=== PATIENT | male | born 1955 | race Caucasian/White ===

== ENCOUNTER → 2016-06-11 | Day surgery (SDC) | payer OTHER, BC ==
[~2016-06-11] MED LIST: ALBUTEROL SO4 2.5/IPRATROPIUM 0.5 INH SOL 3 ML VIAL.NEB. NEB ONE; ONDANSETRON 4 MG/2 ML VIAL IVPUSH PRN
[2016-06-11 07:09] VITALS: BP 152/89; PULSE 78; TEMP 98.2; BMI 36.5
--- NOTE | 2016-06-11 07:37 | HP ---
Admitting History and Physical - Admission History of Present Illness: patient is a 60 y/o male with a past medical history of BOLA, depression, and gout. Patient presents for ECT his last ECT was 05/28/16. Patient reports ongoing cough and wheezing for the past week. patient denies any fever or chest pain. He reports awakening in the AM with a worsening cough. he denies any recent medication changes. History Source: Patient - Past Medical History Pulmonary: Yes: Sleep Apnea Psych: Yes: Depression. No: Addictions, Anxiety, Bipolar, Panic, Psychosis, Schizophrenia, Other - Smoking History Smoking history: Never smoked Have you smoked in the past 12 months: No - Alcohol/Substance Use Hx Alcohol Use: No History of Substance Use: reports: None - Social History ADL: Independent History of Recent Travel: No Home Medications - Allergies Allergies/Adverse Reactions: Allergies Allergy/AdvReac Type Severity Reaction Status Date / Time No Known Allergies Allergy Verified 04/20/16 15:15 - Home Medications Home Medications: Ambulatory Orders Duloxetine HCl [Cymbalta] 60 mg PO HS 01/03/13 Risperidone [Risperdal] 0.5 mg PO HS #0 02/13/15 Naproxen Sodium [Aleve] 220 mg PO DAILY PRN 02/27/16 Review of Systems - Review of Systems Constitutional: reports: No Symptoms Neck: reports: No Symptoms Cardiovascular: reports: No Symptoms Respiratory: reports: Cough, Wheezing Gastrointestinal: reports: No Symptoms Genitourinary: reports: No Symptoms Integumentary: reports: No Symptoms Neurological: reports: No Symptoms Hematology/Lymphatic: reports: No Symptoms Psychiatric: reports: No Symptoms Physical Examination Vital Signs: Vital Signs Temperature 98.2 F 06/11/16 06:52 Pulse Rate 78 06/11/16 06:52 Respiratory Rate 18 06/11/16 06:52 Blood Pressure 152/89 06/11/16 06:52 O2 Sat by Pulse Oximetry (%) 97 06/11/16 06:52 Constitutional: Yes: Well Nourished, No Distress, Calm Eyes: Yes: WNL, Conjunctiva Clear, EOM Intact HENT: Yes: WNL, Atraumatic, Normocephalic Neck: Yes: WNL, Supple, Trachea Midline Cardiovascular: Yes: WNL, Regular Rate and Rhythm, S1, S2 Respiratory: Yes: WNL, Regular, Other (wheezing noted to left apex and base, diminished to base). No: Accessory Muscle Use Gastrointestinal: Yes: WNL, Normal Bowel Sounds, Soft Renal/: No: CVA Tenderness - Left, CVA Tenderness - Right Musculoskeletal: Yes: WNL Extremities: Yes: WNL Edema: No Peripheral Pulses WNL: Yes Integumentary: Yes: WNL Neurological: Yes: WNL, Alert, Oriented ...Motor Strength: WNL Psychiatric: Yes: WNL, Alert, Oriented Labs: reviewed 01/06 Imaging - Results EKG: Image Reviewed, Other (nsr no ischemic changes) Assessment/Plan pt is a 60 y/o male that presents for ECT pt is noted to be wheezing on exam, combivent treatment ordered, pt is moderate risk for ECT, case discussed with Dr Douglass anesthesia, will cancel ECT today
== END | disposition home or self-care (01) ==
LOC: FECT 05:41
PROVIDERS: ATTEND Psychiatry & Neurology Psychiatry
PROC: GZB4ZZZ Other Electroconvulsive Therapy (ICD-10-PCS; principal; 2016-06-11)
DX: F33.2 Major depressive disorder, recurrent severe without psychotic features (principal); Z53.09 Procedure and treatment not carried out because of other contraindication
CPT/HCPCS: 90870

== ENCOUNTER → 2016-06-30 | Day surgery (SDC) | payer OTHER, BC ==
[2016-06-26 09:09] VITALS: BMI 36.5
[~2016-06-30] MED LIST changes: +ACETAMINOPHEN 325 MG TABLET (FP) PO PRN; -ALBUTEROL SO4 2.5/IPRATROPIUM 0.5 INH SOL 3 ML VIAL.NEB. NEB ONE
[2016-06-30 08:25] VITALS: BP 127/88; PULSE 86; TEMP 98.5
== END | disposition home or self-care (01) ==
LOC: FECT 05:39
PROVIDERS: ATTEND Psychiatry & Neurology Psychiatry
PROC: GZB4ZZZ Other Electroconvulsive Therapy (ICD-10-PCS; principal; 2016-06-30 07:00)
DX: F33.2 Major depressive disorder, recurrent severe without psychotic features (principal)
CPT/HCPCS: 90870; 94760

== ENCOUNTER 2016-07-17 05:36 | Day surgery (SDC) | payer OTHER, BC ==
[2016-07-17 06:34] VITALS: BMI 36.5
--- NOTE | 2016-07-17 06:59 | HP ---
Admitting History and Physical - Admission History of Present Illness: patient is a 60y/o male with a past medical history of OBLA, depression an gout. He presents for ECT, his last ECT was 06/30/16, patient reports feeling well. He was recently diagnosed with bronchitis and finished 7 days of antibiotics. He denies any chest pain, shortness of breath, or fever. Patient denies any recent medication changes or hospitalizations. History Source: Patient Limitations to Obtaining History: No Limitations - Past Medical History Pulmonary: Yes: Sleep Apnea Psych: Yes: Depression. No: Addictions, Anxiety, Bipolar, Panic, Psychosis, Schizophrenia, Other - Smoking History Smoking history: Never smoked Have you smoked in the past 12 months: No - Alcohol/Substance Use Hx Alcohol Use: No History of Substance Use: reports: None - Social History Usual Living Arrangement: Yes: Alone ADL: Independent History of Recent Travel: No Home Medications - Allergies Allergies/Adverse Reactions: Allergies Allergy/AdvReac Type Severity Reaction Status Date / Time No Known Allergies Allergy Verified 04/20/16 15:15 - Home Medications Home Medications: Ambulatory Orders Duloxetine HCl [Cymbalta] 60 mg PO HS 01/03/13 Risperidone [Risperdal] 0.5 mg PO HS #0 02/13/15 Naproxen Sodium [Aleve] 220 mg PO DAILY PRN 02/27/16 Family Disease History - Family Disease History Family History: Unremarkable Review of Systems - Review of Systems Constitutional: reports: No Symptoms Eyes: reports: No Symptoms HENT: reports: No Symptoms Neck: reports: No Symptoms Cardiovascular: reports: No Symptoms Respiratory: reports: No Symptoms Gastrointestinal: reports: No Symptoms Genitourinary: reports: No Symptoms Musculoskeletal: reports: No Symptoms Integumentary: reports: No Symptoms Neurological: reports: No Symptoms Endocrine: reports: No Symptoms Hematology/Lymphatic: reports: No Symptoms Psychiatric: reports: No Symptoms Physical Examination Vital Signs: Vital Signs Temperature 98 F 07/17/16 06:31 Pulse Rate 88 07/17/16 06:31 Respiratory Rate 18 07/17/16 06:31 Blood Pressure 120/68 07/17/16 06:31 O2 Sat by Pulse Oximetry (%) 96 07/17/16 06:31 Constitutional: Yes: Well Nourished, No Distress, Calm Eyes: Yes: WNL, Conjunctiva Clear, EOM Intact HENT: Yes: WNL, Atraumatic, Normocephalic Neck: Yes: WNL, Supple, Trachea Midline Cardiovascular: Yes: WNL, Regular Rate and Rhythm, S1, S2 Respiratory: Yes: WNL, Regular, CTA Bilaterally Gastrointestinal: Yes: WNL, Normal Bowel Sounds, Soft ...Rectal Exam: Yes: Deferred Renal/: Yes: WNL Breast(s): Yes: WNL Musculoskeletal: Yes: WNL Extremities: Yes: WNL Edema: No Peripheral Pulses WNL: Yes Peripheral Pulses: Left Radial: 4+, Right Radial: 4+, Left Doralis Pedis: 3+, Right Dorsalis Pedis: 3+, Left Femoral: 3+, Right Femoral: 3+ Integumentary: Yes: WNL Neurological: Yes: WNL, Alert, Oriented ...Motor Strength: WNL Psychiatric: Yes: WNL, Alert, Oriented Imaging - Results EKG: Image Reviewed, Other (nsr no ischemic changes) Assessment/Plan pt is a 60 y/o male that presents for ECT, he has received anaesthesia in the past and denies any adverse reaction to anesthesia. labs and ekg reviewed pt is low risk for ect informed consent, and risks/benefits to be obtained by Dr Muhammad
[2016-07-17 07:08] LABS: BASOPHIL 1.2 % (0-2.0); EOSINOPHIL 8.1 % (0-4.5); MCH 31.3 pg (25.7-33.7); MCHC 34.3 g/dl (32.0-35.9); MEAN CELL VOLUME 91.3 fl (80-96); NEUTROPHILS 53.1 % (42.8-82.8); PLATELET COUNT 211 K/MM3 (134-434); RDW 13.2 % (11.9-15.9); WHITE BLOOD COUNT 6.8 K/mm3 (4.0-10.0)
[2016-07-17 07:34] LABS: ALBUMIN 3.7 g/dl (3.4-5.0); ALK PHOS 72 U/L (45-117); ANION GAP 9 (8-16); BILIRUBIN,TOTAL 0.4 mg/dL (0.2-1.0); CALCIUM 9.3 mg/dL (8.5-10.1); CO2 28 mmol/L (21-32); GLUCOSE,RANDOM 109 mg/dL (74-106); SGOT/AST 18 U/L (15-37); SGPT/ALT 35 U/L (12-78); TOT PROT 6.9 g/dl (6.4-8.2)
[2016-07-17 09:05] VITALS: TEMP 98.4
[2016-07-17 09:18] VITALS: BP 122/78; PULSE 86
== END 2016-07-17 09:20 | disposition home or self-care (01) ==
LOC: FECT 05:36
PROVIDERS: ATTEND Psychiatry & Neurology Psychiatry
PROC: GZB4ZZZ Other Electroconvulsive Therapy (ICD-10-PCS; principal; 2016-07-17 07:45)
DX: F33.2 Major depressive disorder, recurrent severe without psychotic features (principal)
CPT/HCPCS: 36415; 80053; 85025; 90870; 94760

== ENCOUNTER 2016-08-13 05:39 | Day surgery (SDC) | payer OTHER, BC ==
[2016-07-30 09:31] VITALS: BMI 36.5
[2016-08-13 06:29] VITALS: TEMP 98.3
[2016-08-13 08:42] VITALS: BP 131/80; PULSE 86
== END 2016-08-13 08:40 | disposition home or self-care (01) ==
LOC: FECT 05:39
PROVIDERS: ATTEND Psychiatry & Neurology Psychiatry
PROC: GZB4ZZZ Other Electroconvulsive Therapy (ICD-10-PCS; principal; 2016-08-13 07:15)
DX: F33.2 Major depressive disorder, recurrent severe without psychotic features (principal)
CPT/HCPCS: 90870; 94760

== ENCOUNTER 2016-09-17 05:38 | Day surgery (SDC) | payer OTHER, BC ==
[2016-09-17 06:36] VITALS: BMI 34.8
--- NOTE | 2016-09-17 06:57 | HP ---
Admitting History and Physical - Admission History of Present Illness: patient is a 60 y/o male with a past medical history of halle, gout and depression. patient presents for ect his last ect was 08/27/16. He reports feeling well and denies any recent medication changes. patient denies any recent hospitalizations or illness. he reports an improvement in depressive symptoms since starting ECT. patient denies any suicidal or homicidal ideation , visual or auditory hallucinations. History Source: Patient Limitations to Obtaining History: No Limitations - Past Medical History Pulmonary: Yes: Sleep Apnea Psych: Yes: Depression. No: Addictions, Anxiety, Bipolar, Panic, Psychosis, Schizophrenia, Other - Smoking History Smoking history: Never smoked Have you smoked in the past 12 months: No - Alcohol/Substance Use Hx Alcohol Use: No History of Substance Use: reports: None - Social History Usual Living Arrangement: Yes: With Significant Other ADL: Independent History of Recent Travel: No Home Medications - Allergies Allergies/Adverse Reactions: Allergies Allergy/AdvReac Type Severity Reaction Status Date / Time No Known Allergies Allergy Verified 08/25/16 14:56 - Home Medications Home Medications: Ambulatory Orders Duloxetine HCl [Cymbalta] 60 mg PO HS 01/03/13 Risperidone [Risperdal] 0.5 mg PO HS #0 02/13/15 Naproxen Sodium [Aleve] 220 mg PO DAILY PRN 02/27/16 Family Disease History - Family Disease History Family History: Unremarkable Review of Systems - Review of Systems Constitutional: reports: No Symptoms Eyes: reports: No Symptoms HENT: reports: No Symptoms Neck: reports: No Symptoms Cardiovascular: reports: No Symptoms Respiratory: reports: No Symptoms Gastrointestinal: reports: No Symptoms Genitourinary: reports: No Symptoms Breasts: reports: No Symptoms Reported Musculoskeletal: reports: No Symptoms Integumentary: reports: No Symptoms Neurological: reports: No Symptoms Endocrine: reports: No Symptoms Hematology/Lymphatic: reports: No Symptoms Psychiatric: reports: No Symptoms Physical Examination Vital Signs: Vital Signs Temperature 98.8 F 09/17/16 06:30 Pulse Rate 88 09/17/16 06:30 Respiratory Rate 18 09/17/16 06:30 Blood Pressure 138/66 09/17/16 06:30 O2 Sat by Pulse Oximetry (%) 96 09/17/16 06:30 Constitutional: Yes: Well Nourished, No Distress, Calm, Obese Eyes: Yes: WNL, Conjunctiva Clear, EOM Intact HENT: Yes: WNL, Atraumatic, Normocephalic Neck: Yes: WNL, Supple, Trachea Midline Cardiovascular: Yes: WNL, Regular Rate and Rhythm, S1 Respiratory: Yes: WNL, Regular, CTA Bilaterally Gastrointestinal: Yes: WNL, Normal Bowel Sounds, Soft ...Rectal Exam: Yes: Deferred Renal/: Yes: WNL Breast(s): Yes: WNL Musculoskeletal: Yes: WNL Extremities: Yes: WNL Edema: No Peripheral Pulses WNL: Yes Peripheral Pulses: Left Radial: 4+, Right Radial: 4+, Left Doralis Pedis: 3+, Right Dorsalis Pedis: 3+, Left Femoral: 3+, Right Femoral: 3+ Integumentary: Yes: WNL Neurological: Yes: WNL, Alert, Oriented ...Motor Strength: WNL Psychiatric: Yes: WNL, Alert, Oriented Labs: reviewed 07/10 Imaging - Results EKG: Image Reviewed, Other (nsr no ischemic changes normal axis deviation) Assessment/Plan pt is a 60 y/o male that presents for ect, he has received ect in the past and denies any adverse reaction to anesthesia. labs and ekg reviewed pt is low risk for procedure informed consent, risks and benefits to be obtained by Dr Muhammad
[2016-09-17] MEDS ORDERED: KETAMINE HCL 500 MG/10 ML VIAL ONE (07:25)
[2016-09-17 08:59] VITALS: TEMP 98.1
[2016-09-17 09:00] VITALS: BP 137/70; PULSE 77
--- NOTE | 2016-09-17 12:56 | EKG ---
Test Reason : Blood Pressure : / mmHG Vent. Rate : 092 BPM Atrial Rate : 092 BPM P-R Int : 128 ms QRS Dur : 086 ms QT Int : 380 ms P-R-T Axes : 049 008 031 degrees QTc Int : 469 ms NORMAL SINUS RHYTHM NORMAL ECG NO PREVIOUS ECGS AVAILABLE Confirmed by BLANCA AGUIRRE MD ([id number] on 09/17/2016 12:56:29 PM Referred By: Jorge Muhammad Confirmed By:BLANCA AGUIRRE MD
== END 2016-09-17 09:00 | disposition home or self-care (01) ==
LOC: FECT 05:38
PROVIDERS: ATTEND Psychiatry & Neurology Psychiatry
PROC: GZB4ZZZ Other Electroconvulsive Therapy (ICD-10-PCS; principal; 2016-09-17 07:30)
DX: F33.2 Major depressive disorder, recurrent severe without psychotic features (principal)
CPT/HCPCS: 90870; 93005; 94760

== ENCOUNTER 2016-10-08 05:23 | Day surgery (SDC) | payer OTHER, BC ==
[2016-10-08 06:13] VITALS: TEMP 98; BMI 35.5
[2016-10-08] MEDS ORDERED: KETAMINE HCL 500 MG/10 ML VIAL ONE (06:49)
[2016-10-08 08:14] VITALS: BP 131/77; PULSE 86
[2016-10-08] MEDS ORDERED: ONDANSETRON 4 MG/2 ML VIAL IVPUSH PRN (09:45)
[2016-10-08] MEDS ORDERED: ACETAMINOPHEN 325 MG TABLET (FP) PO PRN (09:45)
== END 2016-10-08 08:10 | disposition home or self-care (01) ==
LOC: FECT 05:23
PROVIDERS: ATTEND Psychiatry & Neurology Psychiatry
PROC: GZB4ZZZ Other Electroconvulsive Therapy (ICD-10-PCS; principal; 2016-10-08 07:15)
DX: F33.2 Major depressive disorder, recurrent severe without psychotic features (principal)
CPT/HCPCS: 90870; 94760

== ENCOUNTER 2016-10-29 05:40 | Day surgery (SDC) | payer OTHER, BC ==
[2016-10-29 06:28] VITALS: BMI 35.5
--- NOTE | 2016-10-29 07:26 | HP ---
Admitting History and Physical - Admission History of Present Illness: patient is a 61 y/o male with a past medical history of depression, BOLA, and gout. Patient presents for ECT, his last ECT was 10/08/16. Patient reports an improvement of depression since starting ECT. He does report demolishing a cement deck yesterday. Patient report ambulating this AM, he reports feeling dizzy. Patient denies any syncopal episode, chest pain or shortness of breath. patient denies any medication changes, illnessess or hospitalization. History Source: Patient Limitations to Obtaining History: No Limitations - Past Medical History Pulmonary: Yes: Sleep Apnea Psych: Yes: Depression. No: Addictions, Anxiety, Bipolar, Panic, Psychosis, Schizophrenia, Other - Smoking History Smoking history: Never smoked Have you smoked in the past 12 months: No - Alcohol/Substance Use Hx Alcohol Use: No History of Substance Use: reports: None - Social History ADL: Independent History of Recent Travel: No Home Medications - Allergies Allergies/Adverse Reactions: Allergies Allergy/AdvReac Type Severity Reaction Status Date / Time No Known Allergies Allergy Verified 08/25/16 14:56 - Home Medications Home Medications: Ambulatory Orders Duloxetine HCl [Cymbalta] 60 mg PO HS 01/03/13 Risperidone [Risperdal] 0.5 mg PO HS #0 02/13/15 Meloxicam [Mobic] 15 mg PO HS 10/08/16 Family Disease History - Family Disease History Family History: Unremarkable Review of Systems - Review of Systems Constitutional: reports: No Symptoms Eyes: reports: No Symptoms HENT: reports: No Symptoms Neck: reports: No Symptoms Cardiovascular: reports: No Symptoms Respiratory: reports: No Symptoms Gastrointestinal: reports: No Symptoms Genitourinary: reports: No Symptoms Musculoskeletal: reports: No Symptoms Integumentary: reports: No Symptoms Neurological: reports: No Symptoms Endocrine: reports: No Symptoms Hematology/Lymphatic: reports: No Symptoms Psychiatric: reports: No Symptoms Physical Examination Vital Signs: Vital Signs Temperature 98.4 F 10/29/16 06:23 Pulse Rate 75 10/29/16 06:23 Respiratory Rate 15 10/29/16 06:23 Blood Pressure 143/90 10/29/16 06:23 O2 Sat by Pulse Oximetry (%) 97 10/29/16 06:23 Constitutional: Yes: Well Nourished, No Distress, Calm, Obese Eyes: Yes: WNL, Conjunctiva Clear, EOM Intact HENT: Yes: WNL, Atraumatic, Normocephalic Neck: Yes: WNL, Supple, Trachea Midline Cardiovascular: Yes: WNL, Regular Rate and Rhythm, S1, S2 Respiratory: Yes: WNL, Regular, CTA Bilaterally Gastrointestinal: Yes: WNL, Normal Bowel Sounds, Soft ...Rectal Exam: Yes: Deferred Renal/: Yes: WNL Musculoskeletal: Yes: WNL Extremities: Yes: WNL Edema: No Peripheral Pulses WNL: Yes Peripheral Pulses: Left Radial: 4+, Right Radial: 4+, Left Doralis Pedis: 3+, Right Dorsalis Pedis: 3+, Left Femoral: 3+, Right Femoral: 3+ Integumentary: Yes: WNL Neurological: Yes: WNL, Alert, Oriented ...Motor Strength: WNL Psychiatric: Yes: WNL, Alert, Oriented Labs: labs reviewed 07/10 Imaging - Results EKG: Image Reviewed, Other (nsr no ischemeic changes) Assessment/Plan pt is a 61 y/o male that presents for ECT, his last ECT was 10/08, he denies any past reaction to anesthesia labs and ekg reviewed pt is low risk for procedure informed consent, risks/benefits to be obtained by Dr Muhammad
[2016-10-29] MEDS ORDERED: KETAMINE HCL 500 MG/10 ML VIAL ONE (08:23)
[2016-10-29] MEDS ORDERED: ONDANSETRON 4 MG/2 ML VIAL IVPUSH PRN (08:46)
[2016-10-29] MEDS ORDERED: LACTATED RINGERS SOLUTION 1,000 ML IV SCH (09:00)
[2016-10-29 10:03] VITALS: TEMP 97.8
[2016-10-29 10:11] VITALS: BP 139/79; PULSE 88
== END 2016-10-29 10:05 | disposition home or self-care (01) ==
LOC: FECT 05:40
PROVIDERS: ATTEND Psychiatry & Neurology Psychiatry
PROC: GZB4ZZZ Other Electroconvulsive Therapy (ICD-10-PCS; principal; 2016-10-29 08:00)
DX: F33.2 Major depressive disorder, recurrent severe without psychotic features (principal)
CPT/HCPCS: 90870; 94760

== ENCOUNTER 2016-11-19 05:38 | Day surgery (SDC) | payer OTHER, BC ==
[2016-11-11 16:50] VITALS: BMI 35.5
[2016-11-19] MEDS ORDERED: KETAMINE HCL 500 MG/10 ML VIAL ONE (07:05)
[2016-11-19 08:25] VITALS: PULSE 100; TEMP 97.9
[2016-11-19 08:26] VITALS: BP 132/83
== END 2016-11-19 08:25 | disposition home or self-care (01) ==
LOC: FECT 05:38
PROVIDERS: ATTEND Psychiatry & Neurology Psychiatry
PROC: GZB4ZZZ Other Electroconvulsive Therapy (ICD-10-PCS; principal; 2016-11-19 07:15)
DX: F33.2 Major depressive disorder, recurrent severe without psychotic features (principal)
CPT/HCPCS: 90870; 94760

== ENCOUNTER 2016-12-18 05:38 | Day surgery (SDC) | payer OTHER, BC ==
[2016-12-17 13:27] VITALS: BMI 35.5
[2016-12-18 07:01] VITALS: TEMP 98
--- NOTE | 2016-12-18 07:01 | HP ---
Admitting History and Physical - Admission History of Present Illness: patient is a 61 y/o male with a past medical history of depression, halle, and gout. Patient presents for ect, his last ect was 11/19/16. He reports feeling well, he denies any recent illnesses or hospitalizations. Patient denies any medication changes and reports compliance with prescribed medications. He reports an improvement in depressive symptoms since starting ect. He denies any suicidal or homicidal ideation, visual or auditory hallucinations. History Source: Patient Limitations to Obtaining History: No Limitations - Past Medical History Pulmonary: Yes: Sleep Apnea Psych: Yes: Depression. No: Addictions, Anxiety, Bipolar, Panic, Psychosis, Schizophrenia, Other - Smoking History Smoking history: Never smoked Have you smoked in the past 12 months: No - Alcohol/Substance Use Hx Alcohol Use: No History of Substance Use: reports: None - Social History Usual Living Arrangement: Yes: With Spouse ADL: Independent History of Recent Travel: No Home Medications - Allergies Allergies/Adverse Reactions: Allergies Allergy/AdvReac Type Severity Reaction Status Date / Time No Known Allergies Allergy Verified 11/11/16 16:44 - Home Medications Home Medications: Ambulatory Orders Duloxetine HCl [Cymbalta] 60 mg PO HS 01/03/13 Risperidone [Risperdal] 0.5 mg PO HS #0 02/13/15 Naproxen Sodium [Aleve] 440 mg PO DAILY PRN 12/18/16 Family Disease History - Family Disease History Family History: Unremarkable Review of Systems - Review of Systems Constitutional: reports: No Symptoms Eyes: reports: No Symptoms HENT: reports: No Symptoms Neck: reports: No Symptoms Cardiovascular: reports: No Symptoms Respiratory: reports: No Symptoms Gastrointestinal: reports: No Symptoms Genitourinary: reports: No Symptoms Musculoskeletal: reports: No Symptoms Integumentary: reports: No Symptoms Neurological: reports: No Symptoms Endocrine: reports: No Symptoms Hematology/Lymphatic: reports: No Symptoms Psychiatric: reports: No Symptoms Physical Examination Constitutional: Yes: Well Nourished, No Distress, Calm, Obese Eyes: Yes: WNL, Conjunctiva Clear, EOM Intact HENT: Yes: WNL, Atraumatic, Normocephalic Neck: Yes: WNL, Supple, Trachea Midline Cardiovascular: Yes: WNL, Regular Rate and Rhythm, S1, S2 Respiratory: Yes: WNL, Regular, CTA Bilaterally Gastrointestinal: Yes: WNL, Normal Bowel Sounds, Soft ...Rectal Exam: Yes: Deferred Renal/: Yes: WNL Musculoskeletal: Yes: WNL Extremities: Yes: WNL Edema: No Peripheral Pulses WNL: Yes Peripheral Pulses: Left Radial: 4+, Right Radial: 4+, Left Doralis Pedis: 3+, Right Dorsalis Pedis: 3+, Left Femoral: 3+, Right Femoral: 3+ Integumentary: Yes: WNL Neurological: Yes: WNL, Alert, Oriented ...Motor Strength: WNL Psychiatric: Yes: WNL, Alert, Oriented Labs: labs reviewed 07/10 Imaging - Results EKG: Other (nsr no ischemic changes) Assessment/Plan pt is a 61 y/o male that presents for ect, labs and ekg reviewed pt is medically optimized for procedure
[2016-12-18] MEDS ORDERED: KETAMINE HCL 500 MG/10 ML VIAL ONE (07:19)
[2016-12-18 09:26] LABS: ALBUMIN 3.6 g/dl (3.5-5.0); ALK PHOS 52 U/L (32-92); ANION GAP 6 (8-16); BILIRUBIN,TOTAL 0.8 mg/dl (0.2-1.0); CALCIUM 8.9 mg/dl (8.4-10.2); CO2 27 mmol/L (22-28); CREATININE 0.9 mg/dl (0.6-1.3); GLUCOSE,RANDOM 121 mg/dl (74-106); SGOT/AST 26 U/L (10-42); SGPT/ALT 30 U/L (10-40); TOT PROT 6.3 g/dl (6.4-8.3)
[2016-12-18 09:27] LABS: BASOPHIL 3.1 % (0-2.0); EOSINOPHIL 8.6 % (0-4.5); MCH 31.9 pg (25.7-33.7); MCHC 35.4 g/dl (32.0-35.9); MEAN PLT VOLUME 8.7 fl (7.5-11.1); NEUTROPHILS 64.3 % (42.8-82.8); PLATELET COUNT 215 K/MM3 (134-434); RDW 12.2 % (11.9-15.9); WHITE BLOOD COUNT 6.2 K/mm3 (4.0-10.8)
[2016-12-18 09:29] VITALS: BP 139/89; PULSE 88
== END 2016-12-18 09:00 | disposition home or self-care (01) ==
LOC: FECT 05:38
PROVIDERS: ATTEND Psychiatry & Neurology Psychiatry
PROC: GZB4ZZZ Other Electroconvulsive Therapy (ICD-10-PCS; principal; 2016-12-18 07:00)
DX: F33.2 Major depressive disorder, recurrent severe without psychotic features (principal)
CPT/HCPCS: 36415; 80053; 85025; 90870; 94760

== ENCOUNTER 2017-01-07 05:38 | Day surgery (SDC) | payer OTHER, BC ==
[2017-01-07 06:05] VITALS: BMI 35.5
[2017-01-07 07:40] VITALS: TEMP 98
[2017-01-07 08:06] VITALS: BP 137/87; PULSE 98
[2017-01-07] MEDS ORDERED: LACTATED RINGERS SOLUTION 1,000 ML IV SCH (09:45)
== END 2017-01-07 08:10 | disposition home or self-care (01) ==
LOC: FECT 05:38
PROVIDERS: ATTEND Psychiatry & Neurology Psychiatry
PROC: GZB4ZZZ Other Electroconvulsive Therapy (ICD-10-PCS; principal; 2017-01-07 07:30)
DX: F33.2 Major depressive disorder, recurrent severe without psychotic features (principal)
CPT/HCPCS: 90870; 94760

== ENCOUNTER 2017-02-02 05:32 | Day surgery (SDC) | payer OTHER ==
--- NOTE | 2017-02-02 06:59 | HP ---
Admitting History and Physical - Admission History of Present Illness: patient is a 61 y/o male with a past medical history of halle, depression, gout. Patient presents for ect, his last ect was 12/28/16. He reports feeling well. Patient denies any changes in medication. He denies any recent illnesses or hospitalizations. Patient reports an improvement in symptoms since starting ect. patient denies any suicidal or homicidal ideation, visual or auditory hallucinations. History Source: Patient Limitations to Obtaining History: No Limitations - Past Medical History Pulmonary: Yes: Sleep Apnea Psych: Yes: Depression. No: Addictions, Anxiety, Bipolar, Panic, Psychosis, Schizophrenia, Other - Smoking History Smoking history: Never smoked Have you smoked in the past 12 months: No - Alcohol/Substance Use Hx Alcohol Use: No History of Substance Use: reports: None - Social History ADL: Independent History of Recent Travel: No Home Medications - Allergies Allergies/Adverse Reactions: Allergies Allergy/AdvReac Type Severity Reaction Status Date / Time No Known Allergies Allergy Verified 11/11/16 16:44 - Home Medications Home Medications: Ambulatory Orders Duloxetine HCl [Cymbalta] 60 mg PO HS 01/03/13 Risperidone [Risperdal] 0.5 mg PO HS #0 02/13/15 Naproxen Sodium [Aleve] 440 mg PO DAILY PRN 12/18/16 Family Disease History - Family Disease History Family History: Unremarkable Review of Systems - Review of Systems Constitutional: reports: No Symptoms Eyes: reports: No Symptoms HENT: reports: No Symptoms Neck: reports: No Symptoms Cardiovascular: reports: No Symptoms Respiratory: reports: No Symptoms Gastrointestinal: reports: No Symptoms Genitourinary: reports: No Symptoms Musculoskeletal: reports: No Symptoms Integumentary: reports: No Symptoms Neurological: reports: No Symptoms Endocrine: reports: No Symptoms Hematology/Lymphatic: reports: No Symptoms Psychiatric: reports: No Symptoms Physical Examination Vital Signs: Vital Signs Temperature 98.0 F 02/02/17 06:13 Pulse Rate 85 02/02/17 06:13 Respiratory Rate 18 02/02/17 06:13 Blood Pressure 145/95 02/02/17 06:13 O2 Sat by Pulse Oximetry (%) 99 02/02/17 06:13 Constitutional: Yes: Well Nourished, No Distress, Calm, Obese Eyes: Yes: WNL, Conjunctiva Clear, EOM Intact HENT: Yes: WNL, Atraumatic, Normocephalic Neck: Yes: WNL, Supple, Trachea Midline Cardiovascular: Yes: WNL, Regular Rate and Rhythm, S1, S2 Respiratory: Yes: WNL, Regular, CTA Bilaterally Gastrointestinal: Yes: WNL, Normal Bowel Sounds, Soft ...Rectal Exam: Yes: Deferred Renal/: Yes: WNL Breast(s): Yes: WNL Musculoskeletal: Yes: WNL Extremities: Yes: WNL Edema: No Peripheral Pulses WNL: Yes Peripheral Pulses: Left Radial: 4+, Right Radial: 4+, Left Doralis Pedis: 3+, Right Dorsalis Pedis: 3+, Left Femoral: 3+, Right Femoral: 3+ Integumentary: Yes: WNL Neurological: Yes: WNL, Alert, Oriented ...Motor Strength: WNL Psychiatric: Yes: WNL, Alert, Oriented Labs: reviewed 12/07 Imaging - Results EKG: Image Reviewed, Other (nsr) Assessment/Plan pt is a 61 y/o male that presents for ect, labs and ekg reviewed pt is medically optimized for procedure informed consent, risks/benefits to be obtained by Dr Muhammad
[2017-02-02] MEDS ORDERED: KETAMINE HCL 500 MG/10 ML VIAL ONE (07:32)
[2017-02-02 08:17] VITALS: TEMP 98.1
[2017-02-02 08:57] VITALS: BP 130/86; PULSE 88
== END 2017-02-02 09:01 | disposition home or self-care (01) ==
LOC: FECT 05:32
PROVIDERS: ATTEND Psychiatry & Neurology Psychiatry
PROC: GZB4ZZZ Other Electroconvulsive Therapy (ICD-10-PCS; principal; 2017-02-02 08:15)
DX: F33.2 Major depressive disorder, recurrent severe without psychotic features (principal)
CPT/HCPCS: 90870; 94760

== ENCOUNTER 2017-03-03 05:41 | Day surgery (SDC) | payer OTHER, BC ==
[2017-03-03 06:10] VITALS: TEMP 98.2; BMI 38.2
[2017-03-03] MEDS ORDERED: KETAMINE HCL 500 MG/10 ML VIAL ONE (06:52)
--- NOTE | 2017-03-03 08:27 | HP ---
Admitting History and Physical - Admission History of Present Illness: Patient is a 61 y/o male with a past medical history of depression, BOLA, and gout. Patient presents for ect, his last ect was 02/02/17. Patient reports feeling well, denies any suicidal or homicidal ideation, visual or auditory hallucination. He denies any recent illnesses or hospitalizations. Patient denies any changes in medications and reports compliance with prescribed medications. History Source: Patient Limitations to Obtaining History: No Limitations - Past Medical History Pulmonary: Yes: Sleep Apnea Psych: Yes: Depression. No: Addictions, Anxiety, Bipolar, Panic, Psychosis, Schizophrenia, Other - Smoking History Smoking history: Never smoked Have you smoked in the past 12 months: No - Alcohol/Substance Use Hx Alcohol Use: No History of Substance Use: reports: None - Social History ADL: Independent History of Recent Travel: No Home Medications - Allergies Allergies/Adverse Reactions: Allergies Allergy/AdvReac Type Severity Reaction Status Date / Time No Known Allergies Allergy Verified 11/11/16 16:44 - Home Medications Home Medications: Ambulatory Orders Duloxetine HCl [Cymbalta] 60 mg PO HS 01/03/13 Risperidone [Risperdal] 0.5 mg PO HS #0 02/13/15 Naproxen Sodium [Aleve] 440 mg PO DAILY PRN 12/18/16 Family Disease History - Family Disease History Family History: Denies Review of Systems - Review of Systems Constitutional: reports: No Symptoms Eyes: reports: No Symptoms HENT: reports: No Symptoms Neck: reports: No Symptoms Cardiovascular: reports: No Symptoms Respiratory: reports: No Symptoms Gastrointestinal: reports: No Symptoms Genitourinary: reports: No Symptoms Musculoskeletal: reports: No Symptoms Integumentary: reports: No Symptoms Neurological: reports: No Symptoms Endocrine: reports: No Symptoms Hematology/Lymphatic: reports: No Symptoms Psychiatric: reports: No Symptoms Physical Examination Vital Signs: Vital Signs Temperature 98.2 F 03/03/17 08:10 Pulse Rate 74 03/03/17 08:10 Respiratory Rate 18 03/03/17 08:10 Blood Pressure 121/78 03/03/17 08:10 O2 Sat by Pulse Oximetry (%) 95 03/03/17 08:10 Constitutional: Yes: Well Nourished, No Distress, Calm, Obese Eyes: Yes: WNL, Conjunctiva Clear, EOM Intact HENT: Yes: WNL, Atraumatic, Normocephalic Neck: Yes: WNL, Supple, Trachea Midline Cardiovascular: Yes: WNL, Regular Rate and Rhythm, S1, S2 Respiratory: Yes: WNL, Regular, CTA Bilaterally Gastrointestinal: Yes: WNL, Normal Bowel Sounds, Soft ...Rectal Exam: Yes: Deferred Renal/: Yes: WNL Musculoskeletal: Yes: WNL Extremities: Yes: WNL Edema: No Edema: LUE: 4+, RUE: 4+, LLE: 3+, RLE: 3+ Peripheral Pulses WNL: Yes Peripheral Pulses: Left Radial: 4+, Right Radial: 4+, Left Doralis Pedis: 3+, Right Dorsalis Pedis: 3+, Left Femoral: 3+, Right Femoral: 3+ Integumentary: Yes: WNL Neurological: Yes: WNL, Alert, Oriented ...Motor Strength: WNL Psychiatric: Yes: WNL, Alert, Oriented Labs: reviewed 12/07 Imaging - Results EKG: Image Reviewed, Other (nsr no ischemic changes) Assessment/Plan patient is a 61 y/o male that presents for ect, labs and ekg reviewed pt is medically optimized for procedure informed consent, risks/benefits to be obtained by Dr Muhammad
[2017-03-03 08:30] VITALS: BP 140/88; PULSE 88
== END 2017-03-03 08:15 | disposition home or self-care (01) ==
LOC: FECT 05:41
PROVIDERS: ATTEND Psychiatry & Neurology Psychiatry
PROC: GZB4ZZZ Other Electroconvulsive Therapy (ICD-10-PCS; principal; 2017-03-03 08:00)
DX: F33.2 Major depressive disorder, recurrent severe without psychotic features (principal)
CPT/HCPCS: 90870; 94760

== ENCOUNTER 2017-04-08 05:42 | Day surgery (SDC) | payer OTHER, BC ==
[2017-04-07 15:54] VITALS: BMI 38.2
[2017-04-08 06:57] VITALS: TEMP 98
--- NOTE | 2017-04-08 07:15 | HP ---
Admitting History and Physical - Admission History of Present Illness: patient is a 61 y/o male with a past medical history of depression, halle, and gout. Patient presents for ect, his last ect 03/03/17. patient reports feeling well, he denies any changes in medication or recent illnesses. patient denies any suicidal or homicidal ideation, visual or auditory hallucinations. History Source: Patient Limitations to Obtaining History: No Limitations - Past Medical History Pulmonary: Yes: Sleep Apnea Psych: Yes: Depression. No: Addictions, Anxiety, Bipolar, Panic, Psychosis, Schizophrenia, Other - Smoking History Smoking history: Never smoked Have you smoked in the past 12 months: No - Alcohol/Substance Use Hx Alcohol Use: No History of Substance Use: reports: None - Social History Usual Living Arrangement: Yes: With Spouse ADL: Independent History of Recent Travel: No Home Medications - Allergies Allergies/Adverse Reactions: Allergies Allergy/AdvReac Type Severity Reaction Status Date / Time No Known Allergies Allergy Verified 04/07/17 14:08 - Home Medications Home Medications: Ambulatory Orders Duloxetine HCl [Cymbalta] 60 mg PO HS 01/03/13 Risperidone [Risperdal] 0.5 mg PO HS #0 02/13/15 Naproxen Sodium [Aleve] 440 mg PO DAILY PRN 12/18/16 Family Disease History - Family Disease History Family History: Denies Review of Systems - Review of Systems Constitutional: reports: No Symptoms Eyes: reports: No Symptoms HENT: reports: No Symptoms Neck: reports: No Symptoms Cardiovascular: reports: No Symptoms Respiratory: reports: No Symptoms Gastrointestinal: reports: No Symptoms Genitourinary: reports: No Symptoms Musculoskeletal: reports: No Symptoms Integumentary: reports: No Symptoms Neurological: reports: No Symptoms Endocrine: reports: No Symptoms Hematology/Lymphatic: reports: No Symptoms Psychiatric: reports: No Symptoms Physical Examination Vital Signs: Vital Signs Temperature 98.0 F 04/08/17 06:34 Pulse Rate 86 04/08/17 06:34 Respiratory Rate 18 04/08/17 06:34 Blood Pressure 139/84 04/08/17 06:34 O2 Sat by Pulse Oximetry (%) 96 04/08/17 06:34 Constitutional: Yes: Well Nourished, No Distress, Calm Eyes: Yes: WNL, Conjunctiva Clear, EOM Intact HENT: Yes: WNL, Atraumatic, Normocephalic Neck: Yes: WNL, Supple, Trachea Midline Cardiovascular: Yes: WNL, Regular Rate and Rhythm, S1, S2 Respiratory: Yes: WNL, Regular, CTA Bilaterally Gastrointestinal: Yes: WNL, Normal Bowel Sounds, Soft ...Rectal Exam: Yes: Deferred Renal/: Yes: WNL Breast(s): Yes: WNL Musculoskeletal: Yes: WNL Extremities: Yes: WNL Edema: No Peripheral Pulses WNL: Yes Peripheral Pulses: Left Radial: 4+, Right Radial: 4+, Left Doralis Pedis: 3+, Right Dorsalis Pedis: 3+, Left Femoral: 3+, Right Femoral: 3+ Integumentary: Yes: WNL Neurological: Yes: WNL, Alert, Oriented ...Motor Strength: WNL Psychiatric: Yes: WNL, Alert, Oriented Labs: reviewed 12/07 Imaging - Results EKG: Image Reviewed, Other (nsr) Assessment/Plan patient is a 61 y/o male that presents for ect, labs and ekg reviewed patient is medically optimized for procedure
[2017-04-08] MEDS ORDERED: KETAMINE HCL 500 MG/10 ML VIAL ONE (07:57)
[2017-04-08] MEDS ORDERED: PROMETHAZINE HCL 25 MG/1 ML VIAL IVPUSH PRN (08:31)
[2017-04-08] MEDS ORDERED: ONDANSETRON 4 MG/2 ML VIAL IVPUSH PRN (08:31)
[2017-04-08] MEDS ORDERED: LACTATED RINGERS SOLUTION 1,000 ML IV SCH (08:45)
--- NOTE | 2017-04-08 11:05 | EKG ---
Test Reason : Blood Pressure : / mmHG Vent. Rate : 085 BPM Atrial Rate : 085 BPM P-R Int : 132 ms QRS Dur : 084 ms QT Int : 372 ms P-R-T Axes : 069 059 065 degrees QTc Int : 442 ms NORMAL SINUS RHYTHM NORMAL ECG WHEN COMPARED WITH ECG OF 08-APR-2017 06:48, NO SIGNIFICANT CHANGE WAS FOUND Confirmed by BRIGIDO MITCHELL MD ([id number]) on 04/08/2017 11:05:01 AM Referred By: Jorge Muhammad Confirmed By:BRIGIDO MITCHELL MD
[2017-04-09 12:58] VITALS: BP 138/88; PULSE 79
== END 2017-04-08 09:30 | disposition home or self-care (01) ==
LOC: FECT 05:42
PROVIDERS: ATTEND Psychiatry & Neurology Psychiatry
PROC: GZB4ZZZ Other Electroconvulsive Therapy (ICD-10-PCS; principal; 2017-04-08 07:30)
DX: F33.2 Major depressive disorder, recurrent severe without psychotic features (principal)
CPT/HCPCS: 90870; 93005; 94760

== ENCOUNTER 2017-05-06 05:41 | Day surgery (SDC) | payer OTHER, BC ==
[2017-05-06 06:01] VITALS: BMI 38.2
[2017-05-06] MEDS ORDERED: KETAMINE HCL 500 MG/10 ML VIAL ONE (07:05)
[2017-05-06 08:49] VITALS: BP 130/74; PULSE 75; TEMP 98.1
== END 2017-05-06 08:35 | disposition home or self-care (01) ==
LOC: FECT 05:41
PROVIDERS: ATTEND Psychiatry & Neurology Psychiatry
PROC: GZB4ZZZ Other Electroconvulsive Therapy (ICD-10-PCS; principal; 2017-05-06 07:00)
DX: F33.2 Major depressive disorder, recurrent severe without psychotic features (principal)
CPT/HCPCS: 90870; 94760

== ENCOUNTER 2017-06-03 05:37 | Day surgery (SDC) | payer OTHER ==
--- NOTE | 2017-06-03 07:11 | HP ---
Admitting History and Physical - Admission History of Present Illness: patient is a 61y/o obese male with a past medical history of depression, BOLA and gout. Patient presents for ect, his last ect was 05/06/17. Patient reports a significant improvement in depressive symptoms since starting ect. He denies any changes in medications. patient denies any recent illnesses or hospitalizations. He denies any suicidal or homicidal ideation or visual or auditory hallucinations. History Source: Patient Limitations to Obtaining History: No Limitations - Past Medical History Pulmonary: Yes: Sleep Apnea Psych: Yes: Depression. No: Addictions, Anxiety, Bipolar, Panic, Psychosis, Schizophrenia, Other - Smoking History Smoking history: Never smoked Have you smoked in the past 12 months: No - Alcohol/Substance Use Hx Alcohol Use: No History of Substance Use: reports: None - Social History Usual Living Arrangement: Yes: With Spouse ADL: Independent History of Recent Travel: No Home Medications - Allergies Allergies/Adverse Reactions: Allergies Allergy/AdvReac Type Severity Reaction Status Date / Time No Known Allergies Allergy Verified 05/04/17 18:32 - Home Medications Home Medications: Ambulatory Orders Duloxetine HCl [Cymbalta] 60 mg PO HS 01/03/13 Risperidone [Risperdal] 0.5 mg PO HS #0 02/13/15 Naproxen Sodium [Aleve] 440 mg PO DAILY PRN 12/18/16 Family Disease History - Family Disease History Family History: Denies Review of Systems - Review of Systems Constitutional: reports: No Symptoms Eyes: reports: No Symptoms HENT: reports: No Symptoms Neck: reports: No Symptoms Cardiovascular: reports: No Symptoms Respiratory: reports: No Symptoms Gastrointestinal: reports: No Symptoms Genitourinary: reports: No Symptoms Musculoskeletal: reports: No Symptoms Integumentary: reports: No Symptoms Neurological: reports: No Symptoms Endocrine: reports: No Symptoms Hematology/Lymphatic: reports: No Symptoms Psychiatric: reports: No Symptoms Physical Examination Constitutional: Yes: Well Nourished, No Distress, Calm Eyes: Yes: WNL, Conjunctiva Clear, EOM Intact HENT: Yes: WNL, Atraumatic, Normocephalic Neck: Yes: WNL, Supple, Trachea Midline Cardiovascular: Yes: WNL, Regular Rate and Rhythm, S1, S2 Respiratory: Yes: WNL, Regular, CTA Bilaterally Gastrointestinal: Yes: WNL, Normal Bowel Sounds, Soft, Abdomen, Obese ...Rectal Exam: Yes: Deferred Renal/: Yes: WNL Breast(s): Yes: WNL Musculoskeletal: Yes: WNL Extremities: Yes: WNL Edema: No Peripheral Pulses WNL: Yes Peripheral Pulses: Left Radial: 4+, Right Radial: 4+, Left Doralis Pedis: 3+, Right Dorsalis Pedis: 3+, Left Femoral: 3+, Right Femoral: 3+ Integumentary: Yes: WNL Neurological: Yes: WNL, Alert, Oriented ...Motor Strength: WNL Psychiatric: Yes: WNL, Alert, Oriented Labs: reviewed 12/07 Imaging - Results EKG: Report Reviewed, Other (nsr) Assessment/Plan patient is a 61 y/o male that presents for ect, labs and ekg reviewed patient is medically optimized for procedure informed consent, risks/benefits to be obtained by Dr Muhammad
[2017-06-03 07:20] VITALS: BMI 37.6
[2017-06-03] MEDS ORDERED: KETAMINE HCL 500 MG/10 ML VIAL ONE (07:57)
[2017-06-03 08:58] VITALS: TEMP 98.7
[2017-06-03 09:27] VITALS: BP 136/88; PULSE 90
== END 2017-06-03 09:28 | disposition home or self-care (01) ==
LOC: FECT 05:37
PROVIDERS: ATTEND Psychiatry & Neurology Psychiatry
PROC: GZB4ZZZ Other Electroconvulsive Therapy (ICD-10-PCS; principal; 2017-06-03 07:30)
DX: F33.2 Major depressive disorder, recurrent severe without psychotic features (principal)
CPT/HCPCS: 90870; 94760

== ENCOUNTER 2017-07-13 05:39 | Day surgery (SDC) | payer OTHER, BC ==
[2017-07-13 06:40] VITALS: BMI 38.3
--- NOTE | 2017-07-13 07:08 | HP ---
History of Present Illness: This is a 61 year old male with PMHx of depression, BOLA, gout, who presented for ECT. Last ECT was on 06/03/17. The patient states that he has improved since starting ECT. He denies any changes to his medications. He denies any recent illness or hospitalization. He denies chest pain, palpitations. He states he is about two weeks behind on his ECT schedule because his 's cancer may have returned. He states he is nervous and concerned, but that they are "getting through it". He denies any suicidal or homicidal ideation or visual or auditory hallucinations. History Source: Patient Limitations to Obtaining History: No Limitations - Past Medical History Pulmonary: Yes: Sleep Apnea Psych: Yes: Depression. No: Addictions, Anxiety, Bipolar, Panic, Psychosis, Schizophrenia, Other - Smoking History Smoking history: Never smoked Have you smoked in the past 12 months: No - Alcohol/Substance Use Hx Alcohol Use: No History of Substance Use: reports: None - Social History Usual Living Arrangement: Yes: With Spouse ADL: Independent History of Recent Travel: No Home Medications - Allergies Allergies/Adverse Reactions: Allergies Allergy/AdvReac Type Severity Reaction Status Date / Time No Known Allergies Allergy Verified 05/04/17 18:32 - Home Medications Home Medications: Ambulatory Orders Duloxetine HCl [Cymbalta] 60 mg PO HS 01/03/13 Risperidone [Risperdal] 0.5 mg PO HS #0 02/13/15 Naproxen Sodium [Aleve] 440 mg PO DAILY PRN 12/18/16 Family Disease History - Family Disease History Family History: Denies Review of Systems - Review of Systems Constitutional: reports: No Symptoms Eyes: reports: No Symptoms HENT: reports: No Symptoms Neck: reports: No Symptoms Cardiovascular: reports: No Symptoms Respiratory: reports: No Symptoms Gastrointestinal: reports: No Symptoms Genitourinary: reports: No Symptoms Musculoskeletal: reports: No Symptoms Integumentary: reports: No Symptoms Neurological: reports: No Symptoms Endocrine: reports: No Symptoms Hematology/Lymphatic: reports: No Symptoms Psychiatric: reports: No Symptoms Physical Examination Constitutional: Yes: Well Nourished, No Distress, Calm Eyes: Yes: WNL, Conjunctiva Clear, EOM Intact HENT: Yes: WNL, Atraumatic, Normocephalic Neck: Yes: WNL, Supple, Trachea Midline Cardiovascular: Yes: WNL, Regular Rate and Rhythm, S1, S2 Respiratory: Yes: WNL, Regular, CTA Bilaterally Gastrointestinal: Yes: WNL, Normal Bowel Sounds, Soft, Abdomen, Obese ...Rectal Exam: Yes: Deferred Renal/: Yes: WNL Breast(s): Yes: WNL Musculoskeletal: Yes: WNL Extremities: Yes: WNL Edema: No Peripheral Pulses WNL: Yes Peripheral Pulses: Left Radial: 4+, Right Radial: 4+, Left Doralis Pedis: 3+, Right Dorsalis Pedis: 3+, Left Femoral: 3+, Right Femoral: 3+ Integumentary: Yes: WNL Neurological: Yes: WNL, Alert, Oriented ...Motor Strength: WNL Psychiatric: Yes: WNL, Alert, Oriented Labs: reviewed Imaging - Results EKG: Report Reviewed, Other (nsr) Assessment/Plan This is a 61 year old male with PMHx of depression, BOLA, gout, who presented for ECT Plan: 1) EKG from 03/2017 reviewed 2) Awaiting labs from today 3) The patient denies any changes to medications, recent hospitalizations 4) The patient is medically optimized for procedure 5) Informed consent, risks/benefits to be obtained by Dr. Muhammad Visit type - Emergency Visit Emergency Visit: Yes Care time: The patient presented to the Emergency Department on the above date and was hospitalized for further evaluation of their emergent condition. - New Patient This patient is new to me today: Yes Date on this admission: 07/13/17 - Critical Care Critical Care patient: No
[2017-07-13 07:36] LABS: HEMATOCRIT 42.9 % (35.4-49); HEMOGLOBIN 15.1 GM/dl (11.7-16.9); MCH 31.7 pg (25.7-33.7); MCHC 35.1 g/dl (32.0-35.9); MEAN CELL VOLUME 90.3 fl (80-96); MEAN PLT VOLUME 7.9 fl (7.5-11.1); PLATELET COUNT 207 K/MM3 (134-434); RBC 4.75 M/mm3 (4.00-5.60); RDW 12.3 % (11.9-15.9); WHITE BLOOD COUNT 5.9 K/mm3 (4.0-10.8)
[2017-07-13 07:37] LABS: ALBUMIN 3.9 g/dl (3.5-5.0); ALK PHOS 48 U/L (32-92); ANION GAP 5 (8-16); BILIRUBIN,TOTAL 0.6 mg/dl (0.2-1.0); BLOOD UREA NITROGEN 18 mg/dl (7-18); CALCIUM 8.7 mg/dl (8.4-10.2); CHLORIDE 104 mmol/L (98-107); CO2 26 mmol/L (22-28); CREATININE 0.9 mg/dl (0.6-1.3); GLUCOSE,RANDOM 117 mg/dl (74-106); POTASSIUM 4.6 mmol/L (3.5-5.1); SGOT/AST 22 U/L (10-42); SGPT/ALT 29 U/L (10-40); SODIUM 135 mmol/L (136-145); TOT PROT 6.7 g/dl (6.4-8.3)
[2017-07-13] MEDS ORDERED: KETAMINE HCL 500 MG/10 ML VIAL ONE (07:54)
[2017-07-13] MEDS ORDERED: ONDANSETRON 4 MG/2 ML VIAL IVPUSH PRN (08:05)
[2017-07-13] MEDS ORDERED: oxyCODONE HCL 5 MG TABLET PO PRN (08:05)
[2017-07-13 09:20] VITALS: TEMP 98.4
[2017-07-13 09:21] VITALS: BP 136/76; PULSE 88
== END 2017-07-13 09:25 | disposition home or self-care (01) ==
LOC: FECT 05:39
PROVIDERS: ATTEND Psychiatry & Neurology Psychiatry
PROC: GZB4ZZZ Other Electroconvulsive Therapy (ICD-10-PCS; principal; 2017-07-13 07:45)
DX: F33.2 Major depressive disorder, recurrent severe without psychotic features (principal)
CPT/HCPCS: 36415; 80053; 85027

== ENCOUNTER 2017-08-12 05:42 | Day surgery (SDC) | payer OTHER, BC ==
[2017-08-04 12:11] VITALS: BMI 38.2
[2017-08-12 06:47] VITALS: TEMP 98.1
--- NOTE | 2017-08-12 07:02 | HP ---
Admitting History and Physical - Admission History of Present Illness: Patient is a 61 y/o male with a past medical history of depression, halle, gout. Patient presents for ect, his last ect was 07/13/17. Patient reports feeling well , he denies any recent illnesses or hospitalizations. patient reports compliance with prescribed medications. patient denies any suicidal or homicidal ideation, visual or auditory hallucinations. History Source: Patient Limitations to Obtaining History: No Limitations - Past Medical History Pulmonary: Yes: Sleep Apnea Psych: Yes: Depression. No: Addictions, Anxiety, Bipolar, Panic, Psychosis, Schizophrenia, Other - Smoking History Smoking history: Never smoked Have you smoked in the past 12 months: No - Alcohol/Substance Use Hx Alcohol Use: No History of Substance Use: reports: None - Social History Usual Living Arrangement: Yes: With Spouse ADL: Independent History of Recent Travel: No Home Medications - Allergies Allergies/Adverse Reactions: Allergies Allergy/AdvReac Type Severity Reaction Status Date / Time No Known Allergies Allergy Verified 06/03/17 07:22 - Home Medications Home Medications: Ambulatory Orders Duloxetine HCl [Cymbalta] 60 mg PO HS 01/03/13 Risperidone [Risperdal] 0.5 mg PO HS #0 02/13/15 Naproxen Sodium [Aleve] 440 mg PO DAILY PRN 12/18/16 Family Disease History - Family Disease History Family History: Denies Review of Systems - Review of Systems Constitutional: reports: No Symptoms Eyes: reports: No Symptoms HENT: reports: No Symptoms Neck: reports: No Symptoms Cardiovascular: reports: No Symptoms Respiratory: reports: No Symptoms Gastrointestinal: reports: No Symptoms Genitourinary: reports: No Symptoms Musculoskeletal: reports: No Symptoms Integumentary: reports: No Symptoms Neurological: reports: No Symptoms Endocrine: reports: No Symptoms Hematology/Lymphatic: reports: No Symptoms Psychiatric: reports: No Symptoms Physical Examination Vital Signs: Vital Signs Temperature 98.1 F 08/12/17 06:34 Pulse Rate 88 08/12/17 06:34 Respiratory Rate 18 08/12/17 06:34 Blood Pressure 126/82 08/12/17 06:34 O2 Sat by Pulse Oximetry (%) 97 08/12/17 06:34 Constitutional: Yes: Well Nourished, No Distress, Calm, Obese Eyes: Yes: WNL, Conjunctiva Clear, EOM Intact HENT: Yes: WNL, Atraumatic, Normocephalic Neck: Yes: WNL, Supple, Trachea Midline Cardiovascular: Yes: WNL, Regular Rate and Rhythm, S1, S2 Respiratory: Yes: WNL, Regular, CTA Bilaterally Gastrointestinal: Yes: WNL, Normal Bowel Sounds, Soft ...Rectal Exam: Yes: WNL Renal/: Yes: WNL Musculoskeletal: Yes: WNL Extremities: Yes: WNL Edema: No Peripheral Pulses WNL: Yes Integumentary: Yes: WNL Neurological: Yes: WNL, Alert, Oriented ...Motor Strength: WNL Psychiatric: Yes: WNL, Alert, Oriented Labs: reviewed 07/13/17 Imaging - Results EKG: Image Reviewed, Other (nsr) Assessment/Plan patient is a 61 y/o male that presents for ect, labs and ekg reviewed patient is medically optimized for procedure informed consent, risks/benefits to be obtained by Dr Muhammad.
[2017-08-12] MEDS ORDERED: KETAMINE HCL 500 MG/10 ML VIAL ONE (07:14)
[2017-08-12 08:45] VITALS: BP 144/88; PULSE 83
== END 2017-08-12 08:45 | disposition home or self-care (01) ==
LOC: FECT 05:42
PROVIDERS: ATTEND Psychiatry & Neurology Psychiatry
PROC: GZB4ZZZ Other Electroconvulsive Therapy (ICD-10-PCS; principal; 2017-08-12 07:45)
DX: F33.2 Major depressive disorder, recurrent severe without psychotic features (principal)
CPT/HCPCS: 90870; 94760

== ENCOUNTER 2017-09-09 05:40 | Day surgery (SDC) | payer OTHER ==
[2017-09-09 06:10] VITALS: BMI 38.2
[2017-09-09] MEDS ORDERED: KETAMINE HCL 500 MG/10 ML VIAL ONE (07:06)
[2017-09-09 08:18] VITALS: TEMP 99.2
[2017-09-09 08:39] VITALS: BP 144/84; PULSE 88
== END 2017-09-09 08:35 | disposition home or self-care (01) ==
LOC: FECT 05:40
PROVIDERS: ATTEND Psychiatry & Neurology Psychiatry
PROC: GZB4ZZZ Other Electroconvulsive Therapy (ICD-10-PCS; principal; 2017-09-09 07:15)
DX: F33.2 Major depressive disorder, recurrent severe without psychotic features (principal)
CPT/HCPCS: 90870; 94760

== ENCOUNTER 2017-10-12 05:37 | Day surgery (SDC) | payer OTHER ==
--- NOTE | 2017-10-12 07:04 | HP ---
Admitting History and Physical - Admission History of Present Illness: Patient is a 62 y/o male with a past medical history of depression, halle, and gout. Patient presents for ect, his last ect was 09/09/17. Patient reports feeling much improved since starting ect. He denies any changes in his medications, patient denies any recent illnesses or hospitalizations. He denies any suicidal or homicidal ideation, visual or auditory hallucinations. History Source: Patient Limitations to Obtaining History: No Limitations - Past Medical History Pulmonary: Yes: Sleep Apnea Psych: Yes: Depression. No: Addictions, Anxiety, Bipolar, Panic, Psychosis, Schizophrenia, Other - Smoking History Smoking history: Never smoked Have you smoked in the past 12 months: No - Alcohol/Substance Use Hx Alcohol Use: No History of Substance Use: reports: None - Social History Usual Living Arrangement: Yes: With Spouse ADL: Independent History of Recent Travel: No Home Medications - Allergies Allergies/Adverse Reactions: Allergies Allergy/AdvReac Type Severity Reaction Status Date / Time No Known Allergies Allergy Verified 06/03/17 07:22 - Home Medications Home Medications: Ambulatory Orders Duloxetine HCl [Cymbalta] 60 mg PO HS 01/03/13 Risperidone [Risperdal] 0.5 mg PO HS #0 02/13/15 Naproxen Sodium [Aleve] 440 mg PO DAILY PRN 12/18/16 Family Disease History - Family Disease History Family History: Denies Review of Systems - Review of Systems Constitutional: reports: No Symptoms Eyes: reports: No Symptoms HENT: reports: No Symptoms Neck: reports: No Symptoms Cardiovascular: reports: No Symptoms Respiratory: reports: No Symptoms Gastrointestinal: reports: No Symptoms Genitourinary: reports: No Symptoms Musculoskeletal: reports: No Symptoms Integumentary: reports: No Symptoms Neurological: reports: No Symptoms Endocrine: reports: No Symptoms Hematology/Lymphatic: reports: No Symptoms Psychiatric: reports: No Symptoms Physical Examination Constitutional: Yes: Well Nourished, No Distress, Calm, Obese Eyes: Yes: WNL, Conjunctiva Clear, EOM Intact HENT: Yes: WNL, Atraumatic, Normocephalic Neck: Yes: WNL, Supple, Trachea Midline Cardiovascular: Yes: WNL, Regular Rate and Rhythm, S1, S2 Respiratory: Yes: WNL, Regular, CTA Bilaterally Gastrointestinal: Yes: WNL, Normal Bowel Sounds, Soft ...Rectal Exam: Yes: Deferred Renal/: Yes: WNL Breast(s): Yes: WNL Musculoskeletal: Yes: WNL Extremities: Yes: WNL Edema: No Peripheral Pulses WNL: Yes Peripheral Pulses: Left Radial: 4+, Right Radial: 4+, Left Doralis Pedis: 3+, Right Dorsalis Pedis: 3+, Left Femoral: 3+, Right Femoral: 3+ Integumentary: Yes: WNL Neurological: Yes: WNL, Alert, Oriented ...Motor Strength: WNL Psychiatric: Yes: WNL, Alert, Oriented Labs: reviewed 07/11 Imaging - Results EKG: Image Reviewed, Other (nsr) Assessment/Plan patient is a 62 y/o male that presents for ect, labs and ekg reviewed, patient is medically optimized for procedure informed consent, risks/benefits to be obtained by Dr Muhammad
[2017-10-12 07:05] VITALS: BMI 36.6
[2017-10-12] MEDS ORDERED: ONDANSETRON 4 MG/2 ML VIAL IVPUSH PRN (07:19)
[2017-10-12] MEDS ORDERED: ACETAMINOPHEN 325 MG TABLET (FP) PO PRN (07:19)
[2017-10-12] MEDS ORDERED: KETAMINE HCL 500 MG/10 ML VIAL ONE (08:04)
[2017-10-12 09:10] VITALS: TEMP 98.9
[2017-10-12 09:28] VITALS: BP 124/74; PULSE 82
--- NOTE | 2017-10-26 13:28 | EKG ---
Test Reason : Blood Pressure : / mmHG Vent. Rate : 089 BPM Atrial Rate : 089 BPM P-R Int : 128 ms QRS Dur : 084 ms QT Int : 386 ms P-R-T Axes : 047 -01 103 degrees QTc Int : 469 ms NORMAL SINUS RHYTHM POSSIBLE INFERIOR INFARCT , AGE UNDETERMINED ABNORMAL ECG WHEN COMPARED WITH ECG OF 08-APR-2017 06:48, QUESTIONABLE CHANGE IN QRS AXIS Confirmed by MD MELO, BIN ([id number]) on 10/26/2017 1:27:42 PM Referred By: Jorge Muhammad Confirmed By:BIN ALEJO MD
== END 2017-10-12 09:39 | disposition home or self-care (01) ==
LOC: FECT 05:37
PROVIDERS: ATTEND Psychiatry & Neurology Psychiatry
PROC: GZB4ZZZ Other Electroconvulsive Therapy (ICD-10-PCS; principal; 2017-10-12 07:30)
DX: F33.2 Major depressive disorder, recurrent severe without psychotic features (principal)
CPT/HCPCS: 90870; 93005; 93010; 94760

== ENCOUNTER 2017-11-18 05:40 | Day surgery (SDC) | payer OTHER ==
[2017-11-18 06:53] VITALS: BMI 36.0
--- NOTE | 2017-11-18 07:36 | HP ---
Admitting History and Physical - Admission History of Present Illness: Patient is a 62 y/o male with a past medical history of depression, halle, and gout. Patient presents for ect, his last ect was 10/12/17. patient reports feeling well. He reports a 16lb planned weight loss. He reports counting calories and avoiding sugary foods. patient denies any recent illnesses or hospitalizations. He denies any suicidal or homicidal ideation, visual or auditory hallucinations. History Source: Patient Limitations to Obtaining History: No Limitations - Past Medical History Pulmonary: Yes: Sleep Apnea Psych: Yes: Depression. No: Addictions, Anxiety, Bipolar, Panic, Psychosis, Schizophrenia, Other - Smoking History Smoking history: Never smoked Have you smoked in the past 12 months: No - Alcohol/Substance Use Hx Alcohol Use: No History of Substance Use: reports: None - Social History Usual Living Arrangement: Yes: With Spouse ADL: Independent History of Recent Travel: No Home Medications - Allergies Allergies/Adverse Reactions: Allergies Allergy/AdvReac Type Severity Reaction Status Date / Time No Known Allergies Allergy Verified 06/03/17 07:22 - Home Medications Home Medications: Ambulatory Orders Duloxetine HCl [Cymbalta] 60 mg PO HS 01/03/13 Risperidone [Risperdal] 0.5 mg PO HS #0 02/13/15 Naproxen Sodium [Aleve] 440 mg PO DAILY PRN 12/18/16 Family Disease History - Family Disease History Family History: Denies Review of Systems - Review of Systems Constitutional: reports: No Symptoms Eyes: reports: No Symptoms HENT: reports: No Symptoms Neck: reports: No Symptoms Cardiovascular: reports: No Symptoms Respiratory: reports: No Symptoms Gastrointestinal: reports: No Symptoms Genitourinary: reports: No Symptoms Musculoskeletal: reports: No Symptoms Integumentary: reports: No Symptoms Neurological: reports: No Symptoms Endocrine: reports: No Symptoms Hematology/Lymphatic: reports: No Symptoms Psychiatric: reports: No Symptoms Physical Examination Vital Signs: Vital Signs Temperature 98 F 11/18/17 06:49 Pulse Rate 72 11/18/17 06:49 Respiratory Rate 16 11/18/17 06:49 Blood Pressure 134/58 11/18/17 06:49 O2 Sat by Pulse Oximetry (%) 98 11/18/17 06:49 Constitutional: Yes: Well Nourished, No Distress, Calm Eyes: Yes: WNL, Conjunctiva Clear, EOM Intact HENT: Yes: WNL, Atraumatic, Normocephalic Neck: Yes: WNL, Supple, Trachea Midline Cardiovascular: Yes: WNL, Regular Rate and Rhythm, S1, S2 Respiratory: Yes: WNL, Regular, CTA Bilaterally Gastrointestinal: Yes: WNL, Normal Bowel Sounds, Soft ...Rectal Exam: Yes: Deferred Renal/: Yes: WNL Musculoskeletal: Yes: WNL Extremities: Yes: WNL Edema: No Peripheral Pulses WNL: Yes Peripheral Pulses: Left Radial: 4+, Right Radial: 4+, Left Doralis Pedis: 3+, Right Dorsalis Pedis: 3+, Left Femoral: 3+, Right Femoral: 3+ Integumentary: Yes: WNL Neurological: Yes: WNL, Alert, Oriented ...Motor Strength: WNL Psychiatric: Yes: WNL, Alert, Oriented Labs: reviewed 07/11 Imaging - Results EKG: Image Reviewed, Other (nsr) Assessment/Plan patient is a 62 y/o male, that presents for ect, labs and ekg reviewed patient is medically optimized for procedure informed consent, risks/benefits to be obtained by Dr Muhammad
[2017-11-18] MEDS ORDERED: KETAMINE HCL 500 MG/10 ML VIAL ONE (08:11)
[2017-11-18 09:42] VITALS: TEMP 98.2
[2017-11-18 09:57] VITALS: BP 128/76; PULSE 92
== END 2017-11-18 09:59 | disposition home or self-care (01) ==
LOC: FECT 05:40
PROVIDERS: ATTEND Psychiatry & Neurology Psychiatry
PROC: GZB4ZZZ Other Electroconvulsive Therapy (ICD-10-PCS; principal; 2017-11-18 07:45)
DX: F33.2 Major depressive disorder, recurrent severe without psychotic features (principal)
CPT/HCPCS: 90870; 94760

== ENCOUNTER 2018-01-25 05:37 | Day surgery (SDC) | payer OTHER ==
[2018-01-25 06:39] VITALS: BMI 35.2
[2018-01-25 07:32] LABS: BASO % 0.8 % (0-2.0); EOS % 7.9 % (0-4.5); HEMATOCRIT 39.8 % (35.4-49); HEMOGLOBIN 13.6 GM/dl (11.7-16.9); LYMPH % 26.5 % (8-40); MCH 31.8 pg (25.7-33.7); MCHC 34.1 g/dl (32.0-35.9); MEAN CELL VOLUME 93.1 fl (80-96); MEAN PLT VOLUME 8.2 fl (7.5-11.1); MONO % 6.5 % (3.8-10.2); NEUT % 58.3 % (42.8-82.8); PLATELET COUNT 202 K/MM3 (134-434); RBC 4.27 M/mm3 (4.00-5.60); RDW 11.9 % (11.9-15.9); WHITE BLOOD COUNT 6.5 K/mm3 (4.0-10.8)
[2018-01-25] MEDS ORDERED: KETAMINE HCL 500 MG/10 ML VIAL ONE (08:02)
[2018-01-25 08:06] LABS: ALBUMIN 3.7 g/dl (3.5-5.0); ALK PHOS 61 U/L (32-92); ANION GAP 7 MMOL/L (8-16); BILIRUBIN,TOTAL 0.5 mg/dl (0.2-1.0); BLOOD UREA NITROGEN 24 mg/dl (7-18); CALCIUM 8.8 mg/dl (8.4-10.2); CHLORIDE 104 mmol/L (98-107); CO2 27 mmol/L (22-28); GLUCOSE,RANDOM 118 mg/dl (74-106); POTASSIUM 4.3 mmol/L (3.5-5.1); SGOT/AST 20 U/L (10-42); SGPT/ALT 22 U/L (10-40); SODIUM 138 mmol/L (136-145); TOT PROT 6.7 g/dl (6.4-8.3)
[2018-01-25 09:14] VITALS: TEMP 98
[2018-01-25 09:31] VITALS: BP 140/90; PULSE 82
== END 2018-01-25 09:35 | disposition home or self-care (01) ==
LOC: FECT 05:37
PROVIDERS: ATTEND Psychiatry & Neurology Psychiatry
PROC: GZB4ZZZ Other Electroconvulsive Therapy (ICD-10-PCS; principal; 2018-01-25 07:00)
DX: F33.2 Major depressive disorder, recurrent severe without psychotic features (principal)
CPT/HCPCS: 36415; 80053; 85025; 90870; 94760

== ENCOUNTER 2018-03-04 05:41 | Day surgery (SDC) | payer OTHER ==
--- NOTE | 2018-03-04 07:23 | HP ---
Admitting History and Physical - Admission Chief Complaint: presents for ect History of Present Illness: Patient is a 62 y/o male with a past medical history of depression, BOLA (bipap) , and gout. Patient presents for ect, patient has been undergoing ect since 2012, his last ect was 03/04. Patient does report an increase in fatigue within the past month, patient denies any chest pain or shortness of breath or dypnea upon exertion. He does report compliance with prescribed medications. He denies any recent illnesses or hospitalizations. patient denies any suicidal or homicidal ideation, visual or auditory hallucinations. History Source: Patient Limitations to Obtaining History: No Limitations - Past Medical History Pulmonary: Yes: Sleep Apnea Psych: Yes: Depression. No: Addictions, Anxiety, Bipolar, Panic, Psychosis, Schizophrenia, Other - Smoking History Smoking history: Never smoked Have you smoked in the past 12 months: No - Alcohol/Substance Use Hx Alcohol Use: No History of Substance Use: reports: None - Social History Usual Living Arrangement: Yes: With Spouse ADL: Independent Occupation: [employer] History of Recent Travel: No Home Medications - Allergies Allergies/Adverse Reactions: Allergies Allergy/AdvReac Type Severity Reaction Status Date / Time No Known Allergies Allergy Verified 06/03/17 07:22 - Home Medications Home Medications: Ambulatory Orders Duloxetine HCl [Cymbalta] 60 mg PO HS 01/03/13 Risperidone [Risperdal] 0.5 mg PO HS #0 02/13/15 Ibuprofen [Advil -] 200 mg PO TID PRN 03/04/18 Family Disease History - Family Disease History Family History: Denies Review of Systems - Review of Systems Constitutional: reports: No Symptoms, Other (fatigue) Eyes: reports: No Symptoms HENT: reports: No Symptoms Neck: reports: No Symptoms Cardiovascular: reports: No Symptoms Respiratory: reports: No Symptoms Gastrointestinal: reports: No Symptoms Genitourinary: reports: No Symptoms Musculoskeletal: reports: No Symptoms Integumentary: reports: No Symptoms Neurological: reports: No Symptoms Endocrine: reports: No Symptoms Hematology/Lymphatic: reports: No Symptoms Psychiatric: reports: No Symptoms Physical Examination Constitutional: Yes: Well Nourished, No Distress, Calm, Obese Eyes: Yes: WNL, Conjunctiva Clear, EOM Intact HENT: Yes: WNL, Atraumatic, Normocephalic Neck: Yes: WNL, Supple, Trachea Midline Cardiovascular: Yes: WNL, Regular Rate and Rhythm, S1, S2 Respiratory: Yes: WNL, Regular, CTA Bilaterally Gastrointestinal: Yes: WNL, Normal Bowel Sounds, Soft ...Rectal Exam: Yes: Deferred Renal/: Yes: WNL Breast(s): Yes: WNL Musculoskeletal: Yes: WNL Extremities: Yes: WNL Edema: No Peripheral Pulses WNL: Yes Peripheral Pulses: Left Radial: 4+, Right Radial: 4+, Left Doralis Pedis: 3+, Right Dorsalis Pedis: 3+, Left Femoral: 3+, Right Femoral: 3+ Integumentary: Yes: WNL Neurological: Yes: WNL, Alert, Oriented ...Motor Strength: WNL Psychiatric: Yes: WNL, Alert, Oriented Labs: reviewed 02/08 Imaging - Results EKG: Image Reviewed, Other (nsr) Assessment/Plan patient is a 62 y/o male that presents for ect labs and ekg reviewed patient is medically optimized for procedure informed consent, risks/benefits to be obtained by Dr Muhammad
[2018-03-04 07:31] VITALS: BMI 35.2
[2018-03-04] MEDS ORDERED: KETAMINE HCL 500 MG/10 ML VIAL ONE (08:41)
[2018-03-04 09:44] VITALS: TEMP 99.3
[2018-03-04 10:37] VITALS: BP 139/89; PULSE 89
== END 2018-03-04 10:15 | disposition home or self-care (01) ==
LOC: FECT 05:41
PROVIDERS: ATTEND Psychiatry & Neurology Psychiatry
PROC: GZB4ZZZ Other Electroconvulsive Therapy (ICD-10-PCS; principal; 2018-03-04 07:30)
DX: F33.2 Major depressive disorder, recurrent severe without psychotic features (principal)
CPT/HCPCS: 90870; 94760

== ENCOUNTER 2018-03-31 05:37 | Day surgery (SDC) | payer OTHER ==
[2018-03-31 07:07] VITALS: BMI 35.1
[2018-03-31] MEDS ORDERED: KETAMINE HCL 500 MG/10 ML VIAL ONE (07:51)
[2018-03-31 08:57] VITALS: TEMP 98
[2018-03-31 09:24] VITALS: BP 137/85; PULSE 90
== END 2018-03-31 09:25 | disposition home or self-care (01) ==
LOC: FECT 05:37
PROVIDERS: ATTEND Psychiatry & Neurology Psychiatry
PROC: GZB4ZZZ Other Electroconvulsive Therapy (ICD-10-PCS; principal; 2018-03-31 07:00)
DX: F33.2 Major depressive disorder, recurrent severe without psychotic features (principal)
CPT/HCPCS: 90870; 94760

== ENCOUNTER 2018-04-28 05:40 | Day surgery (SDC) | payer OTHER ==
--- NOTE | 2018-04-28 07:30 | HP ---
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 His last treatment was 03/31. He is feeling well today. PAST MEDICAL HISTORY: PAST SURGICAL HISTORY: Social History: Lives with Smoking: Never smoker Alcohol: None Drugs: None Allergies No Known Allergies Allergy (Verified 06/03/17 07:22) HOME MEDICATIONS: Home Medications Medication Instructions Recorded Duloxetine HCl [Cymbalta] 60 mg PO HS 01/03/13 Risperidone [Risperdal] 0.5 mg PO HS #0 02/13/15 Ibuprofen [Advil -] 200 mg PO TID PRN 03/04/18 REVIEW OF SYSTEMS CONSTITUTIONAL: Absent: fever, chills, diaphoresis, generalized weakness, malaise, loss of appetite, weight change HEENT: Absent: rhinorrhea, nasal congestion, throat pain, throat swelling, difficulty swallowing, mouth swelling, ear pain, eye pain, visual changes CARDIOVASCULAR: Absent: chest pain, syncope, palpitations, irregular heart rate, lightheadedness , peripheral edema RESPIRATORY: Absent: cough, shortness of breath, dyspnea with exertion, orthopnea, wheezing, stridor, hemoptysis GASTROINTESTINAL: Absent: abdominal pain, abdominal distension, nausea, vomiting, diarrhea, constipation, melena, hematochezia GENITOURINARY: Absent: dysuria, frequency, urgency, hesitancy, hematuria, flank pain, genital pain MUSCULOSKELETAL: Absent: myalgia, arthralgia, joint swelling, back pain, neck pain SKIN: Absent: rash, itching, pallor HEMATOLOGIC/IMMUNOLOGIC: Absent: easy bleeding, easy bruising, lymphadenopathy, frequent infections ENDOCRINE: Absent: unexplained weight gain, unexplained weight loss, heat intolerance, cold intolerance NEUROLOGIC: Absent: headache, focal weakness or paresthesias, dizziness, unsteady gait, seizure, mental status changes, bladder or bowel incontinence PSYCHIATRIC: depression Absent: depression, suicidal or homicidal ideation, hallucinations. PHYSICAL EXAMINATION V/s: BP 127/85, HR 89, RR 18, SpO2 100% on RA, T 98.0 GENERAL: Awake, alert, and fully oriented, in no acute distress. HEAD: Normal with no signs of trauma. EYES: Pupils equal, round and reactive to light, extraocular movements intact, sclera anicteric, conjunctiva clear. No lid lag. EARS, NOSE, THROAT: Ears normal, nares patent, oropharynx clear without exudates. Moist mucous membranes. NECK: Normal range of motion, supple without lymphadenopathy, JVD, or masses. LUNGS: Breath sounds equal, clear to auscultation bilaterally. No wheezes, and no crackles. No accessory muscle use. HEART: Regular rate and rhythm, normal S1 and S2 without murmur, rub or gallop. ABDOMEN: Soft, nontender, not distended, normoactive bowel sounds, no guarding, no rebound, no masses. No hepatomegaly or splenomegaly. MUSCULOSKELETAL: Normal range of motion at all joints. No bony deformities or tenderness. No CVA tenderness. UPPER EXTREMITIES: 2+ pulses, warm, well-perfused. No cyanosis. No clubbing. No peripheral edema. LOWER EXTREMITIES: 2+ pulses, warm, well-perfused. No calf tenderness. No peripheral edema. NEUROLOGICAL: Cranial nerves II-XII intact. Normal speech. Normal gait. PSYCHIATRIC: Cooperative. Good eye contact. Appropriate mood and affect. SKIN: Warm, dry, normal turgor, no rashes or lesions noted, normal capillary refill. EKG obtained today: MSR at 89bpm, q waves in III and aVF are also noted on prior EKG of 10/12/17. No acute ischemic changes. ASSESSMENT/PLAN: 63-year-old male with MDD presenting for continuation of ECT. Cardiac -No cardiac history -Revised Cardiac Risk Index for Pre-Operative Risk: 0 points, 0.4% risk of major cardiac event Pulmonary -Requires Bipap at night, no active issues or change in status Neurological -No neurological or neurosurgical history, no history of trauma Anesthesia -Denies previous problems with anesthesia. ECT is a low risk procedure. The relative benefits outweigh the risks for this patient at this time. Visit type - Emergency Visit Emergency Visit: No - New Patient This patient is new to me today: Yes Date on this admission: 04/28/18 - Critical Care Critical Care patient: No
[2018-04-28 07:56] VITALS: BMI 36.3
[2018-04-28] MEDS ORDERED: KETAMINE HCL 500 MG/10 ML VIAL ONE (08:16)
[2018-04-28 10:03] VITALS: TEMP 97.9
[2018-04-28 10:07] VITALS: BP 131/87; PULSE 85
--- NOTE | 2018-04-28 10:30 | EKG ---
Test Reason : Blood Pressure : / mmHG Vent. Rate : 089 BPM Atrial Rate : 089 BPM P-R Int : 128 ms QRS Dur : 082 ms QT Int : 382 ms P-R-T Axes : 040 -08 055 degrees QTc Int : 464 ms NORMAL SINUS RHYTHM INFERIOR INFARCT (CITED ON OR BEFORE 12-OCT-2017) ABNORMAL ECG WHEN COMPARED WITH ECG OF 12-OCT-2017 06:40, NO SIGNIFICANT CHANGE WAS FOUND Confirmed by PAULA BIGGS, BRIGIDO ([id number]) on 04/28/2018 10:30:16 AM Referred By: Jorge Muhammad Confirmed By:BRIGIDO MITCHELL MD
== END 2018-04-28 09:45 | disposition home or self-care (01) ==
LOC: FECT 05:40
PROVIDERS: ATTEND Psychiatry & Neurology Psychiatry
PROC: GZB4ZZZ Other Electroconvulsive Therapy (ICD-10-PCS; principal; 2018-04-28 07:00)
DX: F33.2 Major depressive disorder, recurrent severe without psychotic features (principal)
CPT/HCPCS: 90870; 93005; 94760

== ENCOUNTER 2018-05-26 05:46 | Day surgery (SDC) | payer OTHER ==
[2018-05-26 06:26] VITALS: BMI 36.1
[2018-05-26] MEDS ORDERED: KETAMINE HCL 500 MG/10 ML VIAL ONE (06:58)
[2018-05-26 07:57] VITALS: TEMP 98.7
[2018-05-26 08:46] VITALS: BP 129/76; PULSE 87
== END 2018-05-26 09:00 | disposition home or self-care (01) ==
LOC: FECT 05:46
PROVIDERS: ATTEND Psychiatry & Neurology Psychiatry
PROC: GZB4ZZZ Other Electroconvulsive Therapy (ICD-10-PCS; principal; 2018-05-26 07:00)
DX: F33.2 Major depressive disorder, recurrent severe without psychotic features (principal)
CPT/HCPCS: 90870; 94760

== ENCOUNTER 2018-06-30 05:44 | Day surgery (SDC) | payer OTHER ==
--- NOTE | 2018-06-30 07:02 | HP ---
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 His last treatment was 05/26/18. He is feeling well today. PAST MEDICAL HISTORY: BOLA, gout Social History: Lives with Smoking: Never smoker Alcohol: None Drugs: None Family History: No family history of malignant hyperthermia or other adverse reaction to anesthesia. Allergies No Known Allergies Allergy (Verified 06/03/17 07:22) HOME MEDICATIONS: Home Medications Medication Instructions Recorded Duloxetine HCl [Cymbalta] 60 mg PO HS 01/03/13 Risperidone [Risperdal] 0.5 mg PO HS #0 02/13/15 Ibuprofen [Advil -] 200 mg PO TID PRN 03/04/18 REVIEW OF SYSTEMS CONSTITUTIONAL: Absent: fever, chills, diaphoresis, generalized weakness, malaise, loss of appetite, weight change HEENT: Absent: rhinorrhea, nasal congestion, throat pain, throat swelling, difficulty swallowing, mouth swelling, ear pain, eye pain, visual changes CARDIOVASCULAR: Absent: chest pain, syncope, palpitations, irregular heart rate, lightheadedness , peripheral edema RESPIRATORY: Absent: cough, shortness of breath, dyspnea with exertion, orthopnea, wheezing, stridor, hemoptysis GASTROINTESTINAL: Some diarrhea, longstanding, attributes to medications Absent: abdominal pain, abdominal distension, nausea, vomiting,constipation, melena, hematochezia GENITOURINARY: Absent: dysuria, frequency, urgency, hesitancy, hematuria, flank pain, genital pain MUSCULOSKELETAL: Absent: myalgia, arthralgia, joint swelling, back pain, neck pain SKIN: Absent: rash, itching, pallor HEMATOLOGIC/IMMUNOLOGIC: Absent: easy bleeding, easy bruising, lymphadenopathy, frequent infections ENDOCRINE: Absent: unexplained weight gain, unexplained weight loss, heat intolerance, cold intolerance NEUROLOGIC: Absent: headache, focal weakness or paresthesias, dizziness, unsteady gait, seizure, mental status changes, bladder or bowel incontinence PSYCHIATRIC: Absent: anxiety, depression, suicidal or homicidal ideation, hallucinations. PHYSICAL EXAMINATION GENERAL: Awake, alert, and fully oriented, in no acute distress. HEAD: Normal with no signs of trauma. EYES: Pupils equal, round and reactive to light, extraocular movements intact, sclera anicteric, conjunctiva clear. No lid lag. EARS, NOSE, THROAT: Ears normal, nares patent, oropharynx clear without exudates. Moist mucous membranes. NECK: Normal range of motion, supple without lymphadenopathy, JVD, or masses. LUNGS: Breath sounds equal, clear to auscultation bilaterally. No wheezes, and no crackles. No accessory muscle use. HEART: Regular rate and rhythm, normal S1 and S2 without murmur, rub or gallop. ABDOMEN: Soft, nontender, not distended, normoactive bowel sounds, no guarding, no rebound, no masses. No hepatomegaly or splenomegaly. MUSCULOSKELETAL: Normal range of motion at all joints. No bony deformities or tenderness. No CVA tenderness. UPPER EXTREMITIES: 2+ pulses, warm, well-perfused. No cyanosis. No clubbing. No peripheral edema. LOWER EXTREMITIES: 2+ pulses, warm, well-perfused. No calf tenderness. No peripheral edema. NEUROLOGICAL: Cranial nerves II-XII intact. Normal speech. Normal gait. PSYCHIATRIC: Cooperative. Good eye contact. Appropriate mood and affect. SKIN: Warm, dry, normal turgor, no rashes or lesions noted, normal capillary refill. ASSESSMENT/PLAN: 62-year-old male with MDD presenting for continuation of ECT. Cardiac -No cardiac history -Revised Cardiac Risk Index for Pre-Operative Risk: 0 points, 0.4% risk of major cardiac event Pulmonary -Requires Bipap at night, no active issues or change in status Neurological -No neurological or neurosurgical history, no history of trauma Anesthesia -Denies previous problems with anesthesia. ECT is a low risk procedure. The relative benefits outweigh the risks for this patient at this time. Visit type - Emergency Visit Emergency Visit: No - New Patient This patient is new to me today: No - Critical Care Critical Care patient: No
[2018-06-30 07:36] VITALS: BMI 37.5
[2018-06-30] MEDS ORDERED: KETAMINE HCL SYRINGES 150 MG/3 ML ONE (08:21)
[2018-06-30 09:22] VITALS: TEMP 98.8
[2018-06-30 09:45] VITALS: BP 145/90; PULSE 89
== END 2018-06-30 09:50 | disposition home or self-care (01) ==
LOC: FECT 05:44
PROVIDERS: ATTEND Psychiatry & Neurology Psychiatry
PROC: GZB4ZZZ Other Electroconvulsive Therapy (ICD-10-PCS; principal; 2018-06-30 08:00)
DX: F33.2 Major depressive disorder, recurrent severe without psychotic features (principal)
CPT/HCPCS: 90870; 94760

== ENCOUNTER 2018-07-28 05:43 | Day surgery (SDC) | payer OTHER ==
[2018-07-13 12:31] VITALS: BMI 37.5
[2018-07-28] MEDS ORDERED: LACTATED RINGERS SOLUTION 1,000 ML IV SCH (07:00)
--- NOTE | 2018-07-28 07:27 | HP ---
CHIEF COMPLAINT: Major depressive disorder, recurrent, severe PCP: Does not have one - states is looking for one in [facility] Primary psych: Dr. 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 He presents today for ECG PAST MEDICAL HISTORY: Major depressive disorder BOLA Gout Social History: Lives with Smoking: Never smoker Alcohol: None Drugs: None Family History: No family history of malignant hyperthermia or other adverse reaction to anesthesia. Allergies No Known Allergies Allergy (Verified 06/03/17 07:22) HOME MEDICATIONS: Home Medications Medication Instructions Recorded Duloxetine HCl [Cymbalta] 60 mg PO HS 01/03/13 Risperidone [Risperdal] 0.5 mg PO HS #0 02/13/15 Ibuprofen [Advil -] 200 mg PO TID PRN 03/04/18 REVIEW OF SYSTEMS CONSTITUTIONAL: Absent: fever, chills, diaphoresis, generalized weakness, malaise, loss of appetite, weight change HEENT: Absent: rhinorrhea, nasal congestion, throat pain, throat swelling, difficulty swallowing, mouth swelling, ear pain, eye pain, visual changes CARDIOVASCULAR: Absent: chest pain, syncope, palpitations, irregular heart rate, lightheadedness , peripheral edema RESPIRATORY: Absent: cough, shortness of breath, dyspnea with exertion, orthopnea, wheezing, stridor, hemoptysis GASTROINTESTINAL: Absent: abdominal pain, abdominal distension, nausea, vomiting, diarrhea, constipation, melena, hematochezia GENITOURINARY: Absent: dysuria, frequency, urgency, hesitancy, hematuria, flank pain, genital pain MUSCULOSKELETAL: Absent: myalgia, arthralgia, joint swelling, back pain, neck pain SKIN: Absent: rash, itching, pallor HEMATOLOGIC/IMMUNOLOGIC: Absent: easy bleeding, easy bruising, lymphadenopathy, frequent infections ENDOCRINE: Absent: unexplained weight gain, unexplained weight loss, heat intolerance, cold intolerance NEUROLOGIC: Absent: headache, focal weakness or paresthesias, dizziness, unsteady gait, seizure, mental status changes, bladder or bowel incontinence PHYSICAL EXAMINATION GENERAL: Awake, alert, and fully oriented, in no acute distress. HEAD: Normal with no signs of trauma. EYES: Pupils equal, round and reactive to light, sclera anicteric, conjunctiva clear. LUNGS: Breath sounds equal, clear to auscultation bilaterally. No wheezes, and no crackles. No accessory muscle use. HEART: Regular rate and rhythm, normal S1 and S2 ABDOMEN: Soft, nontender, not distended MUSCULOSKELETAL: Normal range of motion at all joints. No bony deformities or tenderness. No CVA tenderness. UPPER EXTREMITIES: 2+ pulses, warm, well-perfused. No cyanosis. No clubbing. No peripheral edema. LOWER EXTREMITIES: 2+ pulses, warm, well-perfused. No calf tenderness. No peripheral edema. NEUROLOGICAL: Cranial nerves II-XII intact. Normal speech. ASSESSMENT/PLAN: 62-year-old male with a history of BOLA, gout, and major depressive disorder. Presents today for ECT. Cardiac --no cardiac history --Revised Cardiac Risk Index for Pre-Operative Risk: 0 points, 0.4% risk of major cardiac event Pulmonary --no pulmonary history Neurological --no neurological or neurosurgical history; no history of trauma Anesthesia --no reported problems with anesthesia ECT is a low risk procedure. The relative benefits of the planned procedure outweigh the relative risks for this patient at this time. Visit type - Emergency Visit Emergency Visit: No - New Patient This patient is new to me today: Yes Date on this admission: 07/28/18 - Critical Care Critical Care patient: No
[2018-07-28 08:38] LABS: ALBUMIN 4.2 g/dl (3.4-5.0); ALK PHOS 60 U/L (45-117); ANION GAP 8 MMOL/L (8-16); BILIRUBIN,TOTAL 0.6 mg/dl (0.2-1); BLOOD UREA NITROGEN 17 mg/dl (7-18); CHLORIDE 101 mmol/L (98-107); CO2 26 mmol/L (21-32); GLUCOSE,RANDOM 119 mg/dl (74-106); MAGNESIUM 2.1 mg/dL (1.8-2.4); POTASSIUM 4.5 mmol/L (3.5-5.1); SGOT/AST 23 U/L (15-37); SGPT/ALT 30 U/L (13-61); SODIUM 135 mmol/L (136-145); TOT PROT 7.2 g/dl (6.4-8.2)
[2018-07-28 08:39] LABS: BASO % 1.1 % (0-2.0); EOS % 5.4 % (0-4.5); HEMOGLOBIN 15.2 GM/dl (11.7-16.9); LYMPH % 20.7 % (8-40); MCH 31.8 pg (25.7-33.7); MCHC 34.5 g/dl (32.0-35.9); MEAN PLT VOLUME 8.1 fl (7.5-11.1); NEUT % 66.8 % (42.8-82.8); PLATELET COUNT 242 K/MM3 (134-434); RBC 4.78 M/mm3 (4.00-5.60); RDW 12.3 % (11.9-15.9); WHITE BLOOD COUNT 5.3 K/mm3 (4.0-10.8)
[2018-07-28] MEDS ORDERED: KETAMINE HCL 500 MG/10 ML VIAL ONE (09:26)
[2018-07-28 10:27] VITALS: TEMP 98.1
[2018-07-28 11:02] VITALS: BP 131/92; PULSE 98
== END 2018-07-28 10:55 | disposition home or self-care (01) ==
LOC: FECT 05:43
PROVIDERS: ATTEND Psychiatry & Neurology Psychiatry
PROC: GZB4ZZZ Other Electroconvulsive Therapy (ICD-10-PCS; principal; 2018-07-28 07:30)
DX: F33.2 Major depressive disorder, recurrent severe without psychotic features (principal)
CPT/HCPCS: 36415; 80053; 83735; 85025; 90870; 94760

== ENCOUNTER 2018-09-01 05:38 | Day surgery (SDC) | payer OTHER ==
[2018-09-01] MEDS ORDERED: KETAMINE HCL 500 MG/10 ML VIAL ONE (06:56)
[2018-09-01] MEDS ORDERED: LACTATED RINGERS SOLUTION 1,000 ML IV SCH (07:00)
[2018-09-01 07:26] VITALS: BMI 36.6
[2018-09-01 08:38] VITALS: TEMP 98.5
[2018-09-01 09:05] VITALS: BP 144/87; PULSE 89
--- NOTE | 2018-09-01 18:45 | HP ---
CHIEF COMPLAINT: Major depressive disorder, recurrent, severe PCP: Does not have one - still looking Primary psych: Dr. 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 He presents today for ECT. PAST MEDICAL HISTORY: Major depressive disorder BOLA Gout Social History: Lives with Smoking: Never smoker Alcohol: None Drugs: None Allergies No Known Allergies Allergy (Verified 09/01/18 07:16) HOME MEDICATIONS: Home Medications Medication Instructions Recorded Duloxetine HCl [Cymbalta] 60 mg PO HS 01/03/13 Risperidone [Risperdal] 0.5 mg PO HS #0 02/13/15 Ibuprofen [Advil -] 200 mg PO TID PRN 03/04/18 REVIEW OF SYSTEMS CONSTITUTIONAL: Absent: fever, chills, diaphoresis, generalized weakness, malaise, loss of appetite, weight change HEENT: Absent: rhinorrhea, nasal congestion, throat pain, throat swelling, difficulty swallowing, mouth swelling, ear pain, eye pain, visual changes CARDIOVASCULAR: Absent: chest pain, syncope, palpitations, irregular heart rate, lightheadedness , peripheral edema RESPIRATORY: Absent: cough, shortness of breath, dyspnea with exertion, orthopnea, wheezing, stridor, hemoptysis GASTROINTESTINAL: Absent: abdominal pain, abdominal distension, nausea, vomiting, diarrhea, constipation, melena, hematochezia GENITOURINARY: Absent: dysuria, frequency, urgency, hesitancy, hematuria, flank pain, genital pain MUSCULOSKELETAL: Absent: myalgia, arthralgia, joint swelling, back pain, neck pain SKIN: Absent: rash, itching, pallor HEMATOLOGIC/IMMUNOLOGIC: Absent: easy bleeding, easy bruising, lymphadenopathy, frequent infections ENDOCRINE: Absent: unexplained weight gain, unexplained weight loss, heat intolerance, cold intolerance NEUROLOGIC: Absent: headache, focal weakness or paresthesias, dizziness, unsteady gait, seizure, mental status changes, bladder or bowel incontinence PHYSICAL EXAMINATION Vital Signs - 24 hr 09/01/18 09/01/18 09/01/18 07:23 08:00 08:05 Temperature 98.3 F Pulse Rate 80 93 H 95 H Respiratory 16 18 20 Rate Blood Pressure 123/78 153/73 142/72 O2 Sat by Pulse 99 97 99 Oximetry (%) 09/01/18 09/01/18 09/01/18 08:10 08:15 08:20 Temperature Pulse Rate 102 H 95 H 94 H Respiratory 18 18 18 Rate Blood Pressure 150/88 139/82 142/86 O2 Sat by Pulse 99 100 99 Oximetry (%) 09/01/18 09/01/18 09/01/18 08:25 08:27 08:30 Temperature 98.5 F Pulse Rate 92 H 92 H 90 Respiratory 18 18 18 Rate Blood Pressure 136/86 136/86 149/94 O2 Sat by Pulse 99 100 Oximetry (%) 09/01/18 09/01/18 09:00 09:05 Temperature 98.5 F 98.5 F Pulse Rate 89 89 Respiratory 18 18 Rate Blood Pressure 144/87 144/87 O2 Sat by Pulse 100 Oximetry (%) GENERAL: Awake, alert, and fully oriented, in no acute distress. HEAD: Normal with no signs of trauma. EYES: Pupils equal, round and reactive to light, sclera anicteric, conjunctiva clear. LUNGS: Breath sounds equal, clear to auscultation bilaterally. No wheezes, and no crackles. No accessory muscle use. HEART: Regular rate and rhythm, normal S1 and S2 ABDOMEN: Soft, nontender, not distended MUSCULOSKELETAL: Normal range of motion at all joints. No bony deformities or tenderness. No CVA tenderness. UPPER EXTREMITIES: 2+ pulses, warm, well-perfused. No cyanosis. No clubbing. No peripheral edema. LOWER EXTREMITIES: 2+ pulses, warm, well-perfused. No calf tenderness. No peripheral edema. NEUROLOGICAL: Cranial nerves II-XII intact. Normal speech. ASSESSMENT/PLAN: 62-year-old male with a history of BOLA, gout, and major depressive disorder. Presents today for ECT. Cardiac --no cardiac history --Revised Cardiac Risk Index for Pre-Operative Risk: 0 points, 0.4% risk of major cardiac event Pulmonary --no pulmonary history Neurological --no neurological or neurosurgical history; no history of trauma Anesthesia --no reported problems with anesthesia ECT is a low risk procedure. The relative benefits of the planned procedure outweigh the relative risks for this patient at this time. Visit type - Emergency Visit Emergency Visit: No - New Patient This patient is new to me today: Yes Date on this admission: 09/01/18 - Critical Care Critical Care patient: No
== END 2018-09-01 09:10 | disposition home or self-care (01) ==
LOC: FECT 05:38
PROVIDERS: ATTEND Psychiatry & Neurology Psychiatry
PROC: GZB4ZZZ Other Electroconvulsive Therapy (ICD-10-PCS; principal; 2018-09-01 07:00)
DX: F32.9 Major depressive disorder, single episode, unspecified (principal)
CPT/HCPCS: 90870; 94760

== ENCOUNTER 2018-09-22 05:39 | Day surgery (SDC) | payer OTHER ==
[2018-09-09 12:47] VITALS: BMI 36.6
[2018-09-22] MEDS ORDERED: KETAMINE HCL SYRINGES 150 MG/3 ML ONE (07:10)
[2018-09-22 08:36] VITALS: TEMP 98.2
[2018-09-22 08:50] VITALS: BP 138/84; PULSE 96
== END 2018-09-22 08:52 | disposition home or self-care (01) ==
LOC: FECT 05:39
PROVIDERS: ATTEND Psychiatry & Neurology Psychiatry
PROC: GZB4ZZZ Other Electroconvulsive Therapy (ICD-10-PCS; principal; 2018-09-22 07:15)
DX: F32.9 Major depressive disorder, single episode, unspecified (principal)
CPT/HCPCS: 90870; 94760

== ENCOUNTER 2018-10-20 05:46 | Day surgery (SDC) | payer OTHER | END 2018-10-20 09:00 | disposition home or self-care (01) | LOC: FECT 05:46 | PROC: GZB4ZZZ Other Electroconvulsive Therapy (ICD-10-PCS; principal; 2018-10-20 07:30) | DX: F33.2 Major depressive disorder, recurrent severe without psychotic features (principal) ==

== ENCOUNTER 2018-11-17 05:39 | Day surgery (SDC) | payer OTHER ==
[2018-11-17 07:04] VITALS: TEMP 98.4; BMI 37.5
[2018-11-17] MEDS ORDERED: KETAMINE HCL 500 MG/10 ML VIAL ONE (08:07)
[2018-11-17 09:27] VITALS: BP 149/88; PULSE 89
--- NOTE | 2018-11-17 09:29 | HP ---
CHIEF COMPLAINT: Major depressive disorder, recurrent, severe PCP: None Primary psych: Dr. 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 He presents today for ECT. Recent events: * Lengthy discussion about getting a primary care provider and getting routine health care PAST MEDICAL HISTORY: Major depressive disorder BOLA Gout PAST SURGICAL HISTORY: None reported Social History: Lives with Smoking: Never smoker Alcohol: None Drugs: None Allergies No Known Allergies Allergy (Verified 09/01/18 07:16) HOME MEDICATIONS: Home Medications Medication Instructions Recorded Duloxetine HCl [Cymbalta] 60 mg PO HS 01/03/13 Risperidone [Risperdal] 0.5 mg PO HS #0 02/13/15 Ibuprofen [Advil -] 200 mg PO TID PRN 03/04/18 REVIEW OF SYSTEMS CONSTITUTIONAL: Absent: fever, chills, diaphoresis, generalized weakness, malaise, loss of appetite, weight change HEENT: Absent: rhinorrhea, nasal congestion, throat pain, throat swelling, difficulty swallowing, mouth swelling, ear pain, eye pain, visual changes CARDIOVASCULAR: Absent: chest pain, syncope, palpitations, irregular heart rate, lightheadedness , peripheral edema RESPIRATORY: Absent: cough, shortness of breath, dyspnea with exertion, orthopnea, wheezing, stridor, hemoptysis GASTROINTESTINAL: Absent: abdominal pain, abdominal distension, nausea, vomiting, diarrhea, constipation, melena, hematochezia GENITOURINARY: Absent: dysuria, frequency, urgency, hesitancy, hematuria, flank pain, genital pain MUSCULOSKELETAL: Absent: myalgia, arthralgia, joint swelling, back pain, neck pain SKIN: Absent: rash, itching, pallor HEMATOLOGIC/IMMUNOLOGIC: Absent: easy bleeding, easy bruising, lymphadenopathy, frequent infections ENDOCRINE: Absent: unexplained weight gain, unexplained weight loss, heat intolerance, cold intolerance NEUROLOGIC: Absent: headache, focal weakness or paresthesias, dizziness, unsteady gait, seizure, mental status changes, bladder or bowel incontinence PHYSICAL EXAMINATION Vital Signs - 24 hr 11/17/18 11/17/18 11/17/18 07:01 08:26 08:31 Temperature 98.4 F Pulse Rate 88 102 H 102 H Respiratory 18 18 11 Rate Blood Pressure 132/85 126/77 156/88 O2 Sat by Pulse 98 100 100 Oximetry (%) 11/17/18 11/17/18 11/17/18 08:36 08:41 08:45 Temperature Pulse Rate 101 H 97 H 97 H Respiratory 12 19 14 Rate Blood Pressure 147/82 144/81 136/86 O2 Sat by Pulse 100 98 98 Oximetry (%) 11/17/18 11/17/18 11/17/18 08:50 09:20 09:25 Temperature 98.4 F 98.4 F 98.4 F Pulse Rate 97 H 89 89 Respiratory 14 18 18 Rate Blood Pressure 136/86 149/88 149/88 O2 Sat by Pulse 98 96 Oximetry (%) GENERAL: Awake, alert, and fully oriented, in no acute distress. HEAD: Normal with no signs of trauma. EYES: Pupils equal, round and reactive to light, sclera anicteric, conjunctiva clear. LUNGS: Breath sounds equal, clear to auscultation bilaterally. No wheezes, and no crackles. No accessory muscle use. HEART: Regular rate and rhythm, normal S1 and S2 ABDOMEN: Soft, nontender, not distended MUSCULOSKELETAL: Normal range of motion at all joints. No bony deformities or tenderness. No CVA tenderness. UPPER EXTREMITIES: 2+ pulses, warm, well-perfused. No cyanosis. No clubbing. No peripheral edema. LOWER EXTREMITIES: 2+ pulses, warm, well-perfused. No calf tenderness. No peripheral edema. NEUROLOGICAL: Cranial nerves II-XII intact. Normal speech. 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 He presents today for ECT. Cardiac --no cardiac history --Revised Cardiac Risk Index for Pre-Operative Risk: 0 points, 0.4% risk of major cardiac event Pulmonary --no pulmonary history Neurological --no neurological or neurosurgical history; no history of trauma Anesthesia --no reported problems with anesthesia ECT is a low risk procedure. The relative benefits of the planned procedure outweigh the relative risks for this patient at this time. Visit type - Emergency Visit Emergency Visit: No - New Patient This patient is new to me today: Yes Date on this admission: 11/17/18 - Critical Care Critical Care patient: No
== END 2018-11-17 09:25 | disposition home or self-care (01) ==
LOC: FECT 05:39
PROVIDERS: ATTEND Psychiatry & Neurology Psychiatry
PROC: GZB4ZZZ Other Electroconvulsive Therapy (ICD-10-PCS; principal; 2018-11-17 07:15)
DX: F32.9 Major depressive disorder, single episode, unspecified (principal)
CPT/HCPCS: 90870; 93005; 93010; 94760

== ENCOUNTER 2018-12-22 05:41 | Day surgery (SDC) | payer OTHER ==
[2018-12-20 14:22] VITALS: BMI 37.5
[2018-12-22] MEDS ORDERED: LACTATED RINGERS SOLUTION 1,000 ML IV SCH (07:30)
[2018-12-22 07:32] VITALS: TEMP 98.4
[2018-12-22] MEDS ORDERED: KETAMINE HCL 500 MG/10 ML VIAL ONE (07:48)
[2018-12-22 09:23] VITALS: BP 141/90; PULSE 89
--- NOTE | 2018-12-22 18:04 | HP ---
CHIEF COMPLAINT: Major depressive disorder, recurrent, severe PCP: None Primary psych: Dr. 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 He presents today for ECT. Recent events: * Lengthy discussion about getting a primary care provider and getting routine health care PAST MEDICAL HISTORY: Major depressive disorder BOLA Gout PAST SURGICAL HISTORY: None reported Social History: Lives with Smoking: Never smoker Alcohol: None Drugs: None Allergies No Known Allergies Allergy (Verified 12/20/18 14:03) HOME MEDICATIONS: Home Medications Medication Instructions Recorded Duloxetine HCl [Cymbalta] 60 mg PO HS 01/03/13 Risperidone [Risperdal] 0.5 mg PO HS #0 02/13/15 Ibuprofen [Advil -] 200 mg PO TID PRN 03/04/18 REVIEW OF SYSTEMS CONSTITUTIONAL: Absent: fever, chills, diaphoresis, generalized weakness, malaise, loss of appetite, weight change HEENT: Absent: rhinorrhea, nasal congestion, throat pain, throat swelling, difficulty swallowing, mouth swelling, ear pain, eye pain, visual changes CARDIOVASCULAR: Absent: chest pain, syncope, palpitations, irregular heart rate, lightheadedness , peripheral edema RESPIRATORY: Absent: cough, shortness of breath, dyspnea with exertion, orthopnea, wheezing, stridor, hemoptysis GASTROINTESTINAL: Absent: abdominal pain, abdominal distension, nausea, vomiting, diarrhea, constipation, melena, hematochezia GENITOURINARY: Absent: dysuria, frequency, urgency, hesitancy, hematuria, flank pain, genital pain MUSCULOSKELETAL: Absent: myalgia, arthralgia, joint swelling, back pain, neck pain SKIN: Absent: rash, itching, pallor HEMATOLOGIC/IMMUNOLOGIC: Absent: easy bleeding, easy bruising, lymphadenopathy, frequent infections ENDOCRINE: Absent: unexplained weight gain, unexplained weight loss, heat intolerance, cold intolerance NEUROLOGIC: Absent: headache, focal weakness or paresthesias, dizziness, unsteady gait, seizure, mental status changes, bladder or bowel incontinence PHYSICAL EXAMINATION Vital Signs - 24 hr 12/22/18 12/22/18 12/22/18 07:26 08:14 08:20 Temperature 98.4 F Pulse Rate 89 108 H 107 H Respiratory 18 22 H 22 H Rate Blood Pressure 131/86 116/70 139/80 O2 Sat by Pulse 97 98 97 Oximetry (%) 12/22/18 12/22/18 12/22/18 08:25 08:30 08:40 Temperature 98.4 F Pulse Rate 100 H 99 H 96 H Respiratory 22 H 20 18 Rate Blood Pressure 132/81 131/84 149/94 O2 Sat by Pulse 98 98 95 Oximetry (%) 12/22/18 12/22/18 09:10 09:20 Temperature 98.4 F 98.4 F Pulse Rate 89 89 Respiratory 18 18 Rate Blood Pressure 141/90 141/90 O2 Sat by Pulse 96 Oximetry (%) GENERAL: Awake, alert, and fully oriented, in no acute distress. HEAD: Normal with no signs of trauma. EYES: Pupils equal, round and reactive to light, sclera anicteric, conjunctiva clear. LUNGS: Breath sounds equal, clear to auscultation bilaterally. No wheezes, and no crackles. No accessory muscle use. HEART: Regular rate and rhythm, normal S1 and S2 ABDOMEN: Soft, nontender, not distended MUSCULOSKELETAL: Normal range of motion at all joints. No bony deformities or tenderness. No CVA tenderness. UPPER EXTREMITIES: 2+ pulses, warm, well-perfused. No cyanosis. No clubbing. No peripheral edema. LOWER EXTREMITIES: 2+ pulses, warm, well-perfused. No calf tenderness. No peripheral edema. NEUROLOGICAL: Cranial nerves II-XII intact. Normal speech. 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 He presents today for ECT. Cardiac --no cardiac history --Revised Cardiac Risk Index for Pre-Operative Risk: 0 points, 0.4% risk of major cardiac event Pulmonary --no pulmonary history Neurological --no neurological or neurosurgical history; no history of trauma Anesthesia --no reported problems with anesthesia ECT is a low risk procedure. The relative benefits of the planned procedure outweigh the relative risks for this patient at this time. Visit type - Emergency Visit Emergency Visit: No - New Patient This patient is new to me today: Yes Date on this admission: 12/22/18 - Critical Care Critical Care patient: No
--- NOTE | 2019-01-17 09:39 | EKG ---
Test Reason : Blood Pressure : / mmHG Vent. Rate : 085 BPM Atrial Rate : 085 BPM P-R Int : 118 ms QRS Dur : 084 ms QT Int : 384 ms P-R-T Axes : 053 -06 049 degrees QTc Int : 456 ms NORMAL SINUS RHYTHM NORMAL ECG WHEN COMPARED WITH ECG OF 28-APR-2018 08:30, NO SIGNIFICANT CHANGE WAS FOUND Confirmed by Justice Frederick MD ([id number]) on 01/17/2019 9:38:49 AM Referred By: Jorge Muhammad Confirmed By:Justice Frederick MD
== END 2018-12-22 09:20 | disposition home or self-care (01) ==
LOC: FECT 05:41
PROVIDERS: ATTEND Psychiatry & Neurology Psychiatry
PROC: GZB4ZZZ Other Electroconvulsive Therapy (ICD-10-PCS; principal; 2018-12-22 07:30)
DX: F32.9 Major depressive disorder, single episode, unspecified (principal)
CPT/HCPCS: 90870; 93005; 93010; 94760

== ENCOUNTER 2019-01-19 05:43 | Day surgery (SDC) | payer OTHER ==
[2019-01-19 06:34] VITALS: BMI 37.5
[2019-01-19] MEDS ORDERED: KETAMINE HCL 500 MG/10 ML VIAL ONE (06:57)
[2019-01-19] MEDS ORDERED: oxyCODONE HCL 5 MG TABLET PO PRN (07:26)
[2019-01-19] MEDS ORDERED: ONDANSETRON 4 MG/2 ML VIAL IVPUSH PRN (07:26)
[2019-01-19 08:11] VITALS: TEMP 98.5
[2019-01-19 08:58] LABS: HEMATOCRIT 41.1 % (35.4-49); HEMOGLOBIN 13.9 GM/dl (11.7-16.9); MCH 31.9 pg (25.7-33.7); MCHC 33.8 g/dl (32.0-35.9); MEAN CELL VOLUME 94.3 fl (80-96); PLATELET COUNT 225 K/MM3 (134-434); RBC 4.35 M/mm3 (4.00-5.60); RDW 12.5 % (11.9-15.9)
[2019-01-19 09:07] LABS: BILIRUBIN,TOTAL 0.6 mg/dl (0.2-1); MAGNESIUM 2.1 mg/dL (1.8-2.4); POTASSIUM 5.1 mmol/L (3.5-5.1); TOT PROT 6.9 g/dl (6.4-8.2)
[2019-01-19 09:50] VITALS: BP 138/88; PULSE 88
== END 2019-01-19 09:50 | disposition home or self-care (01) ==
LOC: FECT 05:43
PROVIDERS: ATTEND Psychiatry & Neurology Psychiatry
PROC: GZB4ZZZ Other Electroconvulsive Therapy (ICD-10-PCS; principal; 2019-01-19 07:00)
DX: F33.2 Major depressive disorder, recurrent severe without psychotic features (principal)
CPT/HCPCS: 36415; 80053; 83735; 85027; 90870; 94760

== ENCOUNTER 2019-02-23 05:41 | Day surgery (SDC) | payer OTHER ==
[2019-02-23 06:45] VITALS: TEMP 98.3; BMI 36.7
--- NOTE | 2019-02-23 07:22 | HP ---
CHIEF COMPLAINT: Major depressive disorder, recurrent, severe PCP: Primary psych: Dr. Muhammad HISTORY OF PRESENT ILLNESS This is a 62-year-old male with a history of HTN, BOLA on Bipap at night, gout, and major depressive disorder receiving ECT since 2012. He presents today for ECT. 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 to see a PCP and supervisor quality control, reports in chart; started on ToprolXL for HTN PAST MEDICAL HISTORY: Hypertension Major depressive disorder BOLA Gout PAST SURGICAL HISTORY: None reported Social History: Lives with Smoking: Never smoker Alcohol: None Drugs: None Allergies No Known Allergies Allergy (Verified 02/08/19 17:36) HOME MEDICATIONS: Home Medications Medication Instructions Recorded Duloxetine HCl [Cymbalta] 60 mg PO HS 01/03/13 Risperidone [Risperdal] 0.5 mg PO HS #0 02/13/15 Ibuprofen [Advil -] 200 mg PO TID PRN 03/04/18 Metoprolol Succinate [Toprol Xl] 50 mg PO HS 02/23/19 REVIEW OF SYSTEMS CONSTITUTIONAL: Absent: fever, chills, diaphoresis, generalized weakness, malaise, loss of appetite, weight change HEENT: Absent: rhinorrhea, nasal congestion, throat pain, throat swelling, difficulty swallowing, mouth swelling, ear pain, eye pain, visual changes CARDIOVASCULAR: Absent: chest pain, syncope, palpitations, irregular heart rate, lightheadedness , peripheral edema RESPIRATORY: Absent: cough, shortness of breath, dyspnea with exertion, orthopnea, wheezing, stridor, hemoptysis GASTROINTESTINAL: Absent: abdominal pain, abdominal distension, nausea, vomiting, diarrhea, constipation, melena, hematochezia GENITOURINARY: Absent: dysuria, frequency, urgency, hesitancy, hematuria, flank pain, genital pain MUSCULOSKELETAL: Absent: myalgia, arthralgia, joint swelling, back pain, neck pain SKIN: Absent: rash, itching, pallor HEMATOLOGIC/IMMUNOLOGIC: Absent: easy bleeding, easy bruising, lymphadenopathy, frequent infections ENDOCRINE: Absent: unexplained weight gain, unexplained weight loss, heat intolerance, cold intolerance NEUROLOGIC: Absent: headache, focal weakness or paresthesias, dizziness, unsteady gait, seizure, mental status changes, bladder or bowel incontinence PHYSICAL EXAMINATION Vital Signs - 24 hr 02/23/19 06:42 Temperature 98.3 F Pulse Rate 65 Respiratory 18 Rate Blood Pressure 121/80 O2 Sat by Pulse 96 Oximetry (%) GENERAL: Awake, alert, and fully oriented, in no acute distress. HEAD: Normal with no signs of trauma. EYES: Pupils equal, round and reactive to light, sclera anicteric, conjunctiva clear. LUNGS: Breath sounds equal, clear to auscultation bilaterally. No wheezes, and no crackles. No accessory muscle use. HEART: Regular rate and rhythm, normal S1 and S2 ABDOMEN: Soft, nontender, not distended MUSCULOSKELETAL: Normal range of motion at all joints. No bony deformities or tenderness. No CVA tenderness. UPPER EXTREMITIES: 2+ pulses, warm, well-perfused. No cyanosis. No clubbing. No peripheral edema. LOWER EXTREMITIES: 2+ pulses, warm, well-perfused. No calf tenderness. No peripheral edema. NEUROLOGICAL: Cranial nerves II-XII intact. Normal speech. ASSESSMENT/PLAN: This is a 62-year-old male with a history of BOLA on Bipap at night, gout, and major depressive disorder receiving ECT since 2012. Recently went to see PCP and supervisor quality control for first time in years, started on ToprolXL for HTN. He presents today for ECT. Cardiac --BP stable on ToprolXL --Revised Cardiac Risk Index for Pre-Operative Risk: 0 points, 0.4% risk of major cardiac event Pulmonary --no pulmonary history Neurological --no neurological or neurosurgical history; no history of trauma Anesthesia --no reported problems with anesthesia ECT is a low risk procedure. The relative benefits of the planned procedure outweigh the relative risks for this patient at this time. Visit type - Emergency Visit Emergency Visit: No - New Patient This patient is new to me today: Yes Date on this admission: 02/23/19 - Critical Care Critical Care patient: No
[2019-02-23] MEDS ORDERED: KETAMINE HCL 500 MG/10 ML VIAL ONE (07:53)
[2019-02-23] MEDS ORDERED: ACETAMINOPHEN 325 MG TABLET (FP) PO PRN (08:57)
[2019-02-23 09:15] VITALS: BP 137/86; PULSE 61
== END 2019-02-23 09:20 | disposition home or self-care (01) ==
LOC: FECT 05:41
PROVIDERS: ATTEND Psychiatry & Neurology Psychiatry
PROC: GZB4ZZZ Other Electroconvulsive Therapy (ICD-10-PCS; principal; 2019-02-23 07:15)
DX: F31.89 Other bipolar disorder (principal)
CPT/HCPCS: 90870; 94760

== ENCOUNTER 2019-03-23 05:40 | Day surgery (SDC) | payer OTHER ==
[2019-03-23 07:25] VITALS: BMI 36.6
[2019-03-23] MEDS ORDERED: KETAMINE HCL 500 MG/10 ML VIAL ONE (08:10)
[2019-03-23 09:34] VITALS: TEMP 97.6
[2019-03-23 09:49] VITALS: BP 139/79; PULSE 69
== END 2019-03-23 09:45 | disposition home or self-care (01) ==
LOC: FECT 05:40
PROVIDERS: ATTEND Psychiatry & Neurology Psychiatry
PROC: GZB4ZZZ Other Electroconvulsive Therapy (ICD-10-PCS; principal; 2019-03-23 07:45)
DX: F32.9 Major depressive disorder, single episode, unspecified (principal)
CPT/HCPCS: 90870; 94760

== ENCOUNTER 2019-04-27 05:41 | Day surgery (SDC) | payer OTHER ==
[2019-04-27 06:40] VITALS: BMI 36.6
--- NOTE | 2019-04-27 07:27 | HP ---
CHIEF COMPLAINT: Major depressive disorder, recurrent, severe PCP: Primary psych: Dr. Muhammad HISTORY OF PRESENT ILLNESS This is a 62-year-old male with a history of HTN, BOLA on Bipap at night, gout, and major depressive disorder receiving ECT since 2012. He presents today for ECT. Recent events: * tolerating Toprol XL PAST MEDICAL HISTORY: Hypertension Major depressive disorder BOLA Gout PAST SURGICAL HISTORY: None reported Social History: Lives with Smoking: Never smoker Alcohol: None Drugs: None Allergies No Known Allergies Allergy (Verified 02/08/19 17:36) HOME MEDICATIONS: Home Medications Medication Instructions Recorded Duloxetine HCl [Cymbalta] 60 mg PO HS 01/03/13 Risperidone [Risperdal] 0.5 mg PO HS #0 02/13/15 Ibuprofen [Advil -] 200 mg PO TID PRN 03/04/18 Metoprolol Succinate [Toprol Xl] 50 mg PO HS 02/23/19 REVIEW OF SYSTEMS CONSTITUTIONAL: Absent: fever, chills, diaphoresis, generalized weakness, malaise, loss of appetite, weight change HEENT: Absent: rhinorrhea, nasal congestion, throat pain, throat swelling, difficulty swallowing, mouth swelling, ear pain, eye pain, visual changes CARDIOVASCULAR: Absent: chest pain, syncope, palpitations, irregular heart rate, lightheadedness , peripheral edema RESPIRATORY: Absent: cough, shortness of breath, dyspnea with exertion, orthopnea, wheezing, stridor, hemoptysis GASTROINTESTINAL: Absent: abdominal pain, abdominal distension, nausea, vomiting, diarrhea, constipation, melena, hematochezia GENITOURINARY: Absent: dysuria, frequency, urgency, hesitancy, hematuria, flank pain, genital pain MUSCULOSKELETAL: Absent: myalgia, arthralgia, joint swelling, back pain, neck pain SKIN: Absent: rash, itching, pallor HEMATOLOGIC/IMMUNOLOGIC: Absent: easy bleeding, easy bruising, lymphadenopathy, frequent infections ENDOCRINE: Absent: unexplained weight gain, unexplained weight loss, heat intolerance, cold intolerance NEUROLOGIC: Absent: headache, focal weakness or paresthesias, dizziness, unsteady gait, seizure, mental status changes, bladder or bowel incontinence PHYSICAL EXAMINATION Vital Signs - 24 hr 04/27/19 06:37 Temperature 98.4 F Pulse Rate 72 Respiratory 18 Rate Blood Pressure 134/72 O2 Sat by Pulse 98 Oximetry (%) GENERAL: Awake, alert, and fully oriented, in no acute distress. HEAD: Normal with no signs of trauma. EYES: Pupils equal, round and reactive to light, sclera anicteric, conjunctiva clear. LUNGS: Breath sounds equal, clear to auscultation bilaterally. No wheezes, and no crackles. No accessory muscle use. HEART: Regular rate and rhythm, normal S1 and S2 ABDOMEN: Soft, nontender, not distended MUSCULOSKELETAL: Normal range of motion at all joints. No bony deformities or tenderness. No CVA tenderness. UPPER EXTREMITIES: 2+ pulses, warm, well-perfused. No cyanosis. No clubbing. No peripheral edema. LOWER EXTREMITIES: 2+ pulses, warm, well-perfused. No calf tenderness. No peripheral edema. NEUROLOGICAL: Cranial nerves II-XII intact. Normal speech. ASSESSMENT/PLAN: This is a 62-year-old male with a history of HTN, BOLA on Bipap at night, gout, and major depressive disorder receiving ECT since 2012. He presents today for ECT. Cardiac --on ToprolXL for BP control --Revised Cardiac Risk Index for Pre-Operative Risk: 0 points, 0.4% risk of major cardiac event Pulmonary --no pulmonary history Neurological --no neurological or neurosurgical history; no history of trauma Anesthesia --no reported problems with anesthesia ECT is a low risk procedure. The relative benefits of the planned procedure outweigh the relative risks for this patient at this time. Visit type - Emergency Visit Emergency Visit: No - New Patient This patient is new to me today: Yes Date on this admission: 04/27/19 - Critical Care Critical Care patient: No
[2019-04-27] MEDS ORDERED: KETAMINE HCL 500 MG/10 ML VIAL ONE (07:47)
[2019-04-27 08:51] VITALS: TEMP 98.2
[2019-04-27 09:20] VITALS: BP 124/72; PULSE 72
[2019-04-27] MEDS ORDERED: ONDANSETRON 4 MG/2 ML VIAL IVPUSH PRN (11:12)
[2019-04-27] MEDS ORDERED: LACTATED RINGERS SOLUTION 1,000 ML IV SCH (11:15)
== END 2019-04-27 09:31 | disposition home or self-care (01) ==
LOC: FECT 05:41
PROVIDERS: ATTEND Psychiatry & Neurology Psychiatry
PROC: GZB4ZZZ Other Electroconvulsive Therapy (ICD-10-PCS; principal; 2019-04-27 07:00)
DX: F32.9 Major depressive disorder, single episode, unspecified (principal)
CPT/HCPCS: 90870; 94760

== ENCOUNTER 2019-07-03 05:50 | Day surgery (SDC) | payer OTHER ==
--- NOTE | 2019-07-03 07:33 | HP ---
CHIEF COMPLAINT: Major depressive disorder, recurrent, severe PCP: Primary psych: Dr. Muhammad HISTORY OF PRESENT ILLNESS This is a 62-year-old male with a history of HTN, BOLA on Bipap at night, gout, and major depressive disorder receiving ECT since 2012. He presents today for ECT. Recent events: * none reported PAST MEDICAL HISTORY: Hypertension Major depressive disorder BOLA Gout PAST SURGICAL HISTORY: None reported Social History: Lives with Smoking: Never smoker Alcohol: None Drugs: None Allergies No Known Allergies Allergy (Verified 05/15/19 15:20) HOME MEDICATIONS: Home Medications Medication Instructions Recorded Duloxetine HCl [Cymbalta] 60 mg PO HS 01/03/13 Risperidone [Risperdal] 0.5 mg PO HS #0 02/13/15 Ibuprofen [Advil -] 200 mg PO TID PRN 03/04/18 Metoprolol Succinate [Toprol Xl] 50 mg PO HS 02/23/19 REVIEW OF SYSTEMS CONSTITUTIONAL: Absent: fever, chills, diaphoresis, generalized weakness, malaise, loss of appetite, weight change HEENT: Absent: rhinorrhea, nasal congestion, throat pain, throat swelling, difficulty swallowing, mouth swelling, ear pain, eye pain, visual changes CARDIOVASCULAR: Absent: chest pain, syncope, palpitations, irregular heart rate, lightheadedness , peripheral edema RESPIRATORY: Absent: cough, shortness of breath, dyspnea with exertion, orthopnea, wheezing, stridor, hemoptysis GASTROINTESTINAL: Absent: abdominal pain, abdominal distension, nausea, vomiting, diarrhea, constipation, melena, hematochezia GENITOURINARY: Absent: dysuria, frequency, urgency, hesitancy, hematuria, flank pain, genital pain MUSCULOSKELETAL: Absent: myalgia, arthralgia, joint swelling, back pain, neck pain SKIN: Absent: rash, itching, pallor HEMATOLOGIC/IMMUNOLOGIC: Absent: easy bleeding, easy bruising, lymphadenopathy, frequent infections ENDOCRINE: Absent: unexplained weight gain, unexplained weight loss, heat intolerance, cold intolerance NEUROLOGIC: Absent: headache, focal weakness or paresthesias, dizziness, unsteady gait, seizure, mental status changes, bladder or bowel incontinence PHYSICAL EXAMINATION Vital Signs Temperature 98.1 F 07/03/19 09:26 Pulse Rate 76 07/03/19 09:26 Respiratory Rate 18 07/03/19 09:26 Blood Pressure 124/76 07/03/19 09:26 O2 Sat by Pulse Oximetry (%) 97 07/03/19 09:20 GENERAL: Awake, alert, and fully oriented, in no acute distress. HEAD: Normal with no signs of trauma. EYES: Pupils equal, round and reactive to light, sclera anicteric, conjunctiva clear. LUNGS: Breath sounds equal, clear to auscultation bilaterally. No wheezes, and no crackles. No accessory muscle use. HEART: Regular rate and rhythm, normal S1 and S2 ABDOMEN: Soft, nontender, not distended MUSCULOSKELETAL: Normal range of motion at all joints. No bony deformities or tenderness. No CVA tenderness. UPPER EXTREMITIES: 2+ pulses, warm, well-perfused. No cyanosis. No clubbing. No peripheral edema. LOWER EXTREMITIES: 2+ pulses, warm, well-perfused. No calf tenderness. No peripheral edema. NEUROLOGICAL: Cranial nerves II-XII intact. Normal speech. ASSESSMENT/PLAN: This is a 62-year-old male with a history of HTN, BOLA on Bipap at night, gout, and major depressive disorder receiving ECT since 2012. He presents today for ECT. Cardiac --Blood pressure well-controlled on current meds --Revised Cardiac Risk Index for Pre-Operative Risk: 0 points, 0.4% risk of major cardiac event Pulmonary --no pulmonary history Neurological --no neurological or neurosurgical history; no history of trauma Anesthesia --no reported problems with anesthesia ECT is a low risk procedure. The relative benefits of the planned procedure outweigh the relative risks for this patient at this time. Visit type - Emergency Visit Emergency Visit: No - New Patient This patient is new to me today: Yes Date on this admission: 07/11/19 - Critical Care Critical Care patient: No
[2019-07-03 07:36] VITALS: BMI 38.7
[2019-07-03] MEDS ORDERED: KETAMINE HCL 500 MG/10 ML VIAL ONE (07:58)
[2019-07-03] MEDS ORDERED: ACETAMINOPHEN 325 MG TABLET (FP) PO PRN (08:03)
[2019-07-03] MEDS ORDERED: ONDANSETRON 4 MG/2 ML VIAL IVPUSH PRN (08:03)
[2019-07-03 09:25] VITALS: TEMP 98.1
[2019-07-03 09:26] VITALS: BP 124/76; PULSE 76
== END 2019-07-03 09:27 | disposition home or self-care (01) ==
LOC: FECT 05:50
PROVIDERS: ATTEND Psychiatry & Neurology Psychiatry
PROC: GZB4ZZZ Other Electroconvulsive Therapy (ICD-10-PCS; principal; 2019-07-03 08:00)
DX: F33.2 Major depressive disorder, recurrent severe without psychotic features (principal)
CPT/HCPCS: 90870; 94760

== ENCOUNTER 2019-07-27 07:10 | Day surgery (SDC) | payer OTHER ==
[2019-07-27 07:56] VITALS: BMI 38.6
[2019-07-27 08:01] VITALS: TEMP 98.6
[2019-07-27 09:48] VITALS: BP 137/83; PULSE 72
--- NOTE | 2019-07-27 11:36 | HP ---
CHIEF COMPLAINT: Major depressive disorder, recurrent, severe PCP: Primary psych: Dr. Muhammad HISTORY OF PRESENT ILLNESS This is a 62-year-old male with a history of HTN, BOLA on Bipap at night, gout, and major depressive disorder receiving ECT since 2012. He presents today for ECT. Recent events: * none reported PAST MEDICAL HISTORY: Hypertension Major depressive disorder BOLA Gout PAST SURGICAL HISTORY: None reported Social History: Lives with Smoking: Never smoker Alcohol: None Drugs: None Allergies No Known Allergies Allergy (Verified 05/15/19 15:20) HOME MEDICATIONS: Home Medications Medication Instructions Recorded Duloxetine HCl [Cymbalta] 60 mg PO HS 01/03/13 Risperidone [Risperdal] 0.5 mg PO HS #0 02/13/15 Ibuprofen [Advil -] 200 mg PO TID PRN 03/04/18 Metoprolol Succinate [Toprol Xl] 50 mg PO HS 02/23/19 REVIEW OF SYSTEMS CONSTITUTIONAL: Absent: fever, chills, diaphoresis, generalized weakness, malaise, loss of appetite, weight change HEENT: Absent: rhinorrhea, nasal congestion, throat pain, throat swelling, difficulty swallowing, mouth swelling, ear pain, eye pain, visual changes CARDIOVASCULAR: Absent: chest pain, syncope, palpitations, irregular heart rate, lightheadedness, peripheral edema RESPIRATORY: Absent: cough, shortness of breath, dyspnea with exertion, orthopnea, wheezing, stridor, hemoptysis GASTROINTESTINAL: Absent: abdominal pain, abdominal distension, nausea, vomiting, diarrhea, constipation, melena, hematochezia GENITOURINARY: Absent: dysuria, frequency, urgency, hesitancy, hematuria, flank pain, genital pain MUSCULOSKELETAL: Absent: myalgia, arthralgia, joint swelling, back pain, neck pain SKIN: Absent: rash, itching, pallor HEMATOLOGIC/IMMUNOLOGIC: Absent: easy bleeding, easy bruising, lymphadenopathy, frequent infections ENDOCRINE: Absent: unexplained weight gain, unexplained weight loss, heat intolerance, cold intolerance NEUROLOGIC: Absent: headache, focal weakness or paresthesias, dizziness, unsteady gait, seizure, mental status changes, bladder or bowel incontinence PHYSICAL EXAMINATION Vital Signs - 24 hr 07/27/19 07/27/19 07/27/19 06:30 07:22 07:27 Temperature 98.5 F Pulse Rate 74 88 79 Respiratory 18 16 16 Rate Blood Pressure 123/80 167/99 153/96 O2 Sat by Pulse 100 99 100 Oximetry (%) 07/27/19 07/27/19 07/27/19 07:32 07:40 08:10 Temperature 98.6 F Pulse Rate 76 68 72 Respiratory 12 16 16 Rate Blood Pressure 151/38 L 128/78 137/83 O2 Sat by Pulse 99 96 96 Oximetry (%) 07/27/19 08:25 Temperature Pulse Rate 72 Respiratory 16 Rate Blood Pressure 137/83 O2 Sat by Pulse Oximetry (%) GENERAL: Awake, alert, and fully oriented, in no acute distress. HEAD: Normal with no signs of trauma. EYES: Pupils equal, round and reactive to light, sclera anicteric, conjunctiva clear. LUNGS: Breath sounds equal, clear to auscultation bilaterally. No wheezes, and no crackles. No accessory muscle use. HEART: Regular rate and rhythm, normal S1 and S2 ABDOMEN: Soft, nontender, not distended MUSCULOSKELETAL: Normal range of motion at all joints. No bony deformities or tenderness. No CVA tenderness. UPPER EXTREMITIES: 2+ pulses, warm, well-perfused. No cyanosis. No clubbing. No peripheral edema. LOWER EXTREMITIES: 2+ pulses, warm, well-perfused. No calf tenderness. No peripheral edema. NEUROLOGICAL: Cranial nerves II-XII intact. Normal speech. ASSESSMENT/PLAN: This is a 62-year-old male with a history of HTN, BOLA on Bipap at night, gout, and major depressive disorder receiving ECT since 2012. He presents today for ECT. Cardiac --Blood pressure well-controlled on current meds --Revised Cardiac Risk Index for Pre-Operative Risk: 0 points, 0.4% risk of major cardiac event Pulmonary --no pulmonary history Neurological --no neurological or neurosurgical history; no history of trauma Anesthesia --no reported problems with anesthesia ECT is a low risk procedure. The relative benefits of the planned procedure outweigh the relative risks for this patient at this time. Visit type - Emergency Visit Emergency Visit: No - New Patient This patient is new to me today: Yes Date on this admission: 07/27/19 - Critical Care Critical Care patient: No
[2019-07-27 13:19] LABS: CALCIUM 8.9 mg/dl (8.5-10); CREATININE 0.9 mg/dl (0.55-1.3); POTASSIUM 4.2 mmol/L (3.5-5.1)
[2019-07-27 13:20] LABS: ALBUMIN 3.7 g/dl (3.4-5.0); BILIRUBIN,TOTAL 0.6 mg/dl (0.2-1)
[2019-07-27 13:28] LABS: HEMOGLOBIN 13.9 GM/dl (11.7-16.9); RBC 4.34 M/mm3 (4.00-5.60)
[2019-07-27 13:29] LABS: EOS % 6.4 % (0-4.5); HEMATOCRIT 40.5 % (35.4-49); LYMPH % 21.2 % (8-40); MCH 32.2 pg (25.7-33.7); MCHC 34.4 g/dl (32.0-35.9); MEAN CELL VOLUME 93.5 fl (80-96); MEAN PLT VOLUME 8.3 fl (7.5-11.1); MONO % 7.6 % (3.8-10.2); NEUT % 64.1 % (42.8-82.8); PLATELET COUNT 239 K/MM3 (134-434); RDW 12.3 % (11.9-15.9)
[2019-07-27 13:30] LABS: BASO % 0.7 % (0-2.0)
== END 2019-07-27 08:55 | disposition home or self-care (01) ==
LOC: FECT 07:10
PROVIDERS: ATTEND Psychiatry & Neurology Psychiatry
PROC: GZB4ZZZ Other Electroconvulsive Therapy (ICD-10-PCS; principal; 2019-07-27 07:15)
DX: F32.9 Major depressive disorder, single episode, unspecified (principal)
CPT/HCPCS: 36415; 80053; 83735; 85025; 90870; 94760